=== PATIENT | female | born 1980 | race Caucasian/White ===

== ENCOUNTER → 2018-10-18 | Day surgery (SDC) | payer BC ==
[~2018-10-18] VITALS: Ht 170.2 cm; Wt 70.3 kg
[~2018-10-18] MED LIST: BACLOFEN 10 MG (LIORESAL) TAB PO ONE; KETOROLAC 30 MG/ML VIAL IM ONE; LORA10CA PO; NS IV 1000 ML 1,000 ML IV ONE; NS IV 1000 ML 1,000 ML ONE; OXYM30SP NS
--- OUTSIDE RECORDS SUMMARY | 2018-10-18 16:02 | XMS REPORT | CCD ---
Author Author Ying Burdick Organization Ying Burdick MD, [facility] Address [address] [place] [address] Phone Care Team Providers Care Air Conditioning Manager Name Role Phone PP Unavailable CCM Unavailable Summary Purpose Interface Exchange Insurance Providers Payer name Policy type / Coverage type Covered green party ID Effective Begin Date Effective End Date [facility] [id number] 2017 Unknown Family history Sister Diagnosis Age At Onset Hyperlipidemia Unknown Father Diagnosis Age At Onset Hyperlipidemia Unknown Arthritis Unknown Hypertension Unknown Diabetes Unknown Mother Diagnosis Age At Onset Hyperlipidemia Unknown Hypertension Unknown Asthma Unknown Arthritis Unknown Social History Social History Element Codes Description Effective Dates Marital status Unknown Single 05/05/2016 Number of children Unknown 0 05/05/[address]: 564704992 Never smoker 05/05/[address]: 544999718 Never drinks alcohol 05/05/2016 Allergies, Adverse Reactions, Alerts Substance Reaction Codes Entered Date Inactivated Date Status NEOMYCIN RxNorm: 7299 05/05/2016 No Inactive Date Active Penicillin Unknown 05/05/2016 No Inactive Date Active Past Medical History Illness Codes Condition Status Onset Date Resolved Date Acute laryngopharyngitis ICD-9: 465.0 ICD-10: J06.0 Active 10/09/2018 Unknown Other allergic rhinitis ICD-9: 477.8 ICD-10: J30.89 Active 10/09/2018 Unknown Cervicalgia ICD-9: 723.1 ICD-10: M54.2 Active 06/22/2016 Unknown Muscle spasm of back ICD-9: 724.8 ICD-10: M62.830 Active 07/24/2018 Unknown Pain in left shoulder ICD-9: 719.41 ICD-10: M25.512 Active 06/22/2016 Unknown Elevated blood-pressure reading, without diagnosis of hypertension ICD-9: 796.2 ICD-10: R03.0 Active 05/20/2018 Unknown Pain in right shoulder ICD-9: 719.41 ICD-10: M25.511 Active 07/12/2017 Unknown Strain of other muscles, fascia and tendons at shoulder and upper arm level, left arm, initial encounter ICD-9: 840.8 ICD-10: S46.812A Active 06/22/2016 Unknown Cutaneous abscess of right upper limb ICD-9: 682.3 ICD-10: L02.413 Active 05/04/2016 Unknown Pain in left ankle and joints of left foot ICD-9: 719.47 ICD-10: M25.572 Active 05/04/2016 Unknown Problems Condition Codes Effective Dates Condition Status Acute laryngopharyngitis ICD-9: 465.0 ICD-10: J06.0 10/09/2018 Active Other allergic rhinitis ICD-9: 477.8 ICD-10: J30.89 10/09/2018 Active Cervicalgia ICD-9: 723.1 ICD-10: M54.2 06/22/2016 Active Muscle spasm of back ICD-9: 724.8 ICD-10: M62.830 07/24/2018 Active Pain in left shoulder ICD-9: 719.41 ICD-10: M25.512 06/22/2016 Active Elevated blood-pressure reading, without diagnosis of hypertension ICD-9: 796.2 ICD-10: R03.0 05/20/2018 Active Pain in right shoulder ICD-9: 719.41 ICD-10: M25.511 07/12/2017 Active Strain of other muscles, fascia and tendons at shoulder and upper arm level, left arm, initial encounter ICD-9: 840.8 ICD-10: S46.812A 06/22/2016 Active Cutaneous abscess of right upper limb ICD-9: 682.3 ICD-10: L02.413 05/04/2016 Active Pain in left ankle and joints of left foot ICD-9: 719.47 ICD-10: M25.572 05/04/2016 Active Medications Medication Codes Instructions Start Date Stop Date Status Fill Instructions ProAir HFA 90 mcg/actuation aerosol inhaler RxNorm: 615443 2 Puff(s) INH QID as needed 2 INH QID 10/15/2018 01/12/2019 Active prednisone 20 mg tablet RxNorm: 502640 1 Tablet(s) PO UD 201710/19/2018 Active 40,40,20,20,10,10 albuterol sulfate 2.5 mg/3 mL (0.083 %) solution for nebulization RxNorm: 058493 3 Milliliter(s) INH QID as needed 10/15/2018 No Stop Date Active ofloxacin 0.3 % eye drops RxNorm: 912412 2 Drop(s) ophthalmic (eye) Q2H while awake x 2 days, then Q4H x 5 days 10/14/2018 No Stop Date Active Zithromax Z-Rufus 250 mg tablet RxNorm: 352568 1 Tablet(s) PO UD 10/09/2018 No Stop Date Active Kenalog 40 mg/mL suspension for injection RxNorm: 8850176 Milliliter(s) Inj 10/09/2018 10/09/2018 Inactive prednisone 20 mg tablet RxNorm: 109895 2 Tablet(s) PO daily 10/13/2018 Inactive prednisone 20 mg tablet RxNorm: 078458 2 Tablet(s) PO daily 10/201807/28/2018 Inactive cyclobenzaprine 5 mg tablet RxNorm: 931152 1-2 Tablet(s) PO TID as needed 07/24/2018 07/28/2018 Inactive propranolol 10 mg tablet RxNorm: 609786 1/2 Tablet(s) PO daily as needed performance anxiety events 05/20/201803/2018 Inactive Symbicort 160 mcg-4.5 mcg/actuation HFA aerosol inhaler RxNorm: 0547641 1 INH BID 10/26/2017 01/23/2018 Inactive ProAir HFA 90 mcg/actuation aerosol inhaler RxNorm: 287839 2 INH QID 10/26/2017 01/23/2018 Inactive Symbicort 160 mcg-4.5 mcg/actuation HFA aerosol inhaler RxNorm: 9305515 1 INH BID 10/11/2016 01/08/2017 Inactive ProAir HFA 90 mcg/actuation aerosol inhaler RxNorm: 000335 2 INH QID 10/11/2016 01/08/2017 Inactive Ventolin Refill 90 mcg/actuation aerosol inhaler RxNorm: 569799 2 INH QID 10/11/2016 10/10/2016 Inactive ketorolac 30 mg/mL injection solution RxNorm: 299092 2 Milliliter(s) Inj 06/23/2016 06/23/2016 Inactive cyclobenzaprine 10 mg tablet RxNorm: 543948 1 Tablet(s) PO TID PRN 06/23/2016 07/11/2017 Inactive Bactrim DS 800 mg-160 mg tablet RxNorm: 405807 1 Tablet(s) PO BID 05/05/2016 05/14/2016 Inactive metformin ER 1,000 mg tablet,extended release 24hr RxNorm: 635617 1 Tablet(s) PO BID No Start Date Active Ventolin 90 mcg/actuation aerosol inhaler RxNorm: 351152 INH as needed No Start Date Active Vitamin D3 2,000 unit capsule RxNorm: 055238 1 Capsule(s) PO daily No Start Date Active Claritin 10 mg tablet RxNorm: 626625 1 Tablet(s) PO daily No Start Date Active albuterol sulfate 2.5 mg/3 mL (0.083 %) solution for nebulization RxNorm: 654643 3 Milliliter(s) INH QID as needed No Start Date 10/14/2018 Inactive ofloxacin 0.3 % eye drops RxNorm: 539040 2 Drop(s) ophthalmic (eye) Q2H while awake x 2 days, then Q4H x 5 days No Start Date 10/13/2018 Inactive Symbicort 160 mcg-4.5 mcg/actuation HFA aerosol inhaler RxNorm: 6368158 1 INH BID No Start Date 10/10/2016 Inactive Medication Administered Medication Codes Instructions Start Date Status Kenalog 40 mg/mL suspension for injection RxNorm: 1318123 Milliliter 10/09/2018 No longer Active ketorolac 30 mg/mL injection solution RxNorm: 652285 2Milliliter 06/23/2016 No longer Active Immunizations No Immunization data Assessments Condition Codes Effective Dates Acute laryngopharyngitis ICD-10: J06.0 ICD-9: 465.0 10/09/2018 Other allergic rhinitis ICD-10: J30.89 ICD-9: 477.8 10/09/2018 Muscle spasm of back ICD-10: M62.830 ICD-9: 724.8 07/24/2018 Cervicalgia ICD-10: M54.2 ICD-9: 723.1 07/24/2018 Pain in left shoulder ICD-10: M25.512 ICD-9: 719.41 07/24/2018 Elevated blood-pressure reading, without diagnosis of hypertension ICD-10: R03.0 ICD-9: 796.2 05/20/2018 Pain in right shoulder ICD-10: M25.511 ICD-9: 719.41 07/12/2017 Strain of other muscles, fascia and tendons at shoulder and upper arm level, left arm, initial encounter ICD-10: S46.812A ICD-9: 840.8 06/23/2016 Cutaneous abscess of right upper limb ICD-10: L02.413 ICD-9: 682.3 05/05/2016 Pain in left ankle and joints of left foot ICD-10: M25.572 ICD-9: 719.47 05/05/2016 Reason For Visit Reason For Visit Effective Dates Notes sore throat 10/09/2018 back pain 07/24/2018 blood pressure followup 05/20/2018 shoulder pain 07/12/2017 neck pain 06/23/2016 lower leg pain 05/05/2016 Results No Results data Review of Systems System Result Effective Dates Constitutional recent illness 10/09/2018 Constitutional chills 10/09/2018 Constitutional No diaphoresis 10/09/2018 Constitutional fever 10/09/2018 Eyes No eye erythema 10/09/2018 Ears/Nose/Throat/Neck nasal allergies Ears/Nose/Throat/Neck nasal discharge Ears/Nose/Throat/Neck postnasal drip Ears/Nose/Throat/Neck sinus congestion Ears/Nose/Throat/Neck sore throat 2017 Cardiovascular No chest pain/pressure Cardiovascular No dyspnea 10/09/2018 Respiratory No chest congestion 2017 Respiratory cough 10/09/2018 Respiratory No dyspnea 10/09/2018 Gastrointestinal No constipation 2017 Gastrointestinal No diarrhea 10/09/2018 Gastrointestinal No nausea 10/09/2018 Gastrointestinal No vomiting 10/09/2018 Dermatologic No rash 10/09/2018 Neurologic No alteration of consciousness 10/09/2018 Neurologic No mental status change 2017 Constitutional No recent illness 2017 Constitutional No chills 07/24/2018 Constitutional No fever 07/24/2018 Eyes No eye erythema 07/24/2018 Ears/Nose/Throat/Neck No nasal discharge 07/24/2018 Cardiovascular No chest pain/pressure 10/2018 Cardiovascular No dyspnea 07/24/2018 Respiratory No cough 07/24/2018 Respiratory No dyspnea 07/24/2018 Musculoskeletal joint complaint 2017 Neurologic No alteration of consciousness 07/24/2018 Neurologic No mental status change 2017 Constitutional No recent illness 2017 Constitutional No anorexia 05/20/2018 Constitutional No night sweats 2017 Constitutional No chills 05/20/2018 Constitutional No diaphoresis 05/20/2018 Constitutional No fatigue 05/20/2018 Constitutional No fever 05/20/2018 Constitutional No insomnia 05/20/2018 Constitutional No malaise 05/20/2018 Ears/Nose/Throat/Neck No dysphagia 2017 Cardiovascular No chest pain/pressure 07/2018 Respiratory No dyspnea 05/20/2018 Dermatologic No rash 05/20/2018 Dermatologic No sores 05/20/2018 Neurologic No alteration of consciousness 05/20/2018 Cardiovascular hypertension 05/20/2018 Gastrointestinal No hemorrhoids 2017 Gastrointestinal No abdominal pain 2017 Gastrointestinal No constipation 2017 Gastrointestinal No diarrhea 05/20/2018 Gastrointestinal No gastroesophageal reflux 05/20/2018 Gastrointestinal No melena 05/20/2018 Gastrointestinal No nausea 05/20/2018 Gastrointestinal No vomiting 05/20/2018 Psychiatric No anxiety 05/20/2018 Psychiatric No depression 05/20/2018 Constitutional No recent illness 2016 Constitutional No anorexia 07/12/2017 Constitutional No night sweats 2016 Constitutional No chills 07/12/2017 Constitutional No diaphoresis 07/12/2017 Constitutional fatigue 07/12/2017 Constitutional No fever 07/12/2017 Constitutional insomnia 07/12/2017 Constitutional No malaise 07/12/2017 Constitutional No weight loss 07/12/2017 Constitutional No weight gain 07/12/2017 Ears/Nose/Throat/Neck No dysphagia 2016 Cardiovascular No chest pain/pressure Respiratory No dyspnea 07/12/2017 Dermatologic No rash 07/12/2017 Dermatologic No sores 07/12/2017 Neurologic No alteration of consciousness 07/12/2017 Musculoskeletal shoulder pain 07/12/2017 Eyes No eye discharge 07/12/2017 Eyes No eye erythema 07/12/2017 Ears/Nose/Throat/Neck dizziness 2016 Ears/Nose/Throat/Neck No nasal discharge 07/12/2017 Ears/Nose/Throat/Neck nasal allergies Gastrointestinal No abdominal pain 2016 Gastrointestinal No constipation 2016 Gastrointestinal No diarrhea 07/12/2017 Genitourinary/Nephrology No dysuria 07/12 Psychiatric anxiety 07/12/2017 Endocrine No dry or coarse skin 2016 Constitutional No recent illness 2015 Constitutional No anorexia 06/23/2016 Constitutional No night sweats 2015 Constitutional No chills 06/23/2016 Constitutional No diaphoresis 06/23/2016 Constitutional No fatigue 06/23/2016 Constitutional No fever 06/23/2016 Constitutional No insomnia 06/23/2016 Constitutional No malaise 06/23/2016 Constitutional No weight loss 06/23/2016 Constitutional No weight gain 06/23/2016 Musculoskeletal stiffness 06/23/2016 Musculoskeletal swelling 06/23/2016 Musculoskeletal joint complaint 2015 Musculoskeletal neck pain 06/23/2016 Musculoskeletal shoulder pain 06/23/2016 Dermatologic No rash 06/23/2016 Dermatologic No sores 06/23/2016 Neurologic No alteration of consciousness 06/23/2016 Respiratory No dyspnea 06/23/2016 Cardiovascular No chest pain/pressure 10/2016 Ears/Nose/Throat/Neck No dysphagia 2015 Constitutional No recent illness 2015 Constitutional No chills 05/05/2016 Constitutional No diaphoresis 05/05/2016 Constitutional No fatigue 05/05/2016 Constitutional No fever 05/05/2016 Constitutional No insomnia 05/05/2016 Eyes No eye erythema 05/05/2016 Ears/Nose/Throat/Neck No nasal allergies 05/05/2016 Ears/Nose/Throat/Neck No nasal discharge 05/05/2016 Ears/Nose/Throat/Neck No otalgia 2015 Ears/Nose/Throat/Neck No sinus congestion 05/05/2016 Cardiovascular No chest pain/pressure Cardiovascular No dyspnea 05/05/2016 Respiratory No cough 05/05/2016 Respiratory No chest congestion 2015 Respiratory asthma 05/05/2016 Gastrointestinal No abdominal pain 2015 Gastrointestinal No constipation 2015 Gastrointestinal No diarrhea 05/05/2016 Gastrointestinal No gastroesophageal reflux 05/05/2016 Gastrointestinal No vomiting 05/05/2016 Gastrointestinal No nausea 05/05/2016 Genitourinary/Nephrology No dysuria 05/05 Musculoskeletal joint complaint 2015 Dermatologic No rash 05/05/2016 Dermatologic sores 05/05/2016 Neurologic No alteration of consciousness 05/05/2016 Neurologic No mental status change 2015 Psychiatric No anxiety 05/05/2016 Psychiatric No depression 05/05/2016 Physical Exam Exam Name System Name Item Name Status Result Effective Dates Notes Full Exam - ENT Constitutional general appearance Overall: well nourished 10/09/2018 None Full Exam - ENT Constitutional general appearance Overall: well developed 10/09/2018 None Full Exam - ENT Constitutional general appearance Overall: in no acute distress 10/09/2018 None Full Exam - ENT Ears/Nose/Throat otoscopic exam Overall: external auditory canals normal 10/09/2018 None Full Exam - ENT Ears/Nose/Throat otoscopic exam Left tympanic membrane: air -fluid level 10/09/2018 None Full Exam - ENT Ears/Nose/Throat otoscopic exam Right tympanic membrane: air-fluid level 10/09/2018 None Full Exam - ENT Ears/Nose/Throat lips/ teeth/gingiva Overall: benign lips 10/09/2018 None Full Exam - ENT Ears/Nose/Throat oropharynx Overall: oral mucosa clear 10/09/2018 None Full Exam - ENT Ears/Nose/Throat oropharynx Posterior Pharynx: clear post nasal drainage 10/09/2018 None Full Exam - ENT Ears/Nose/Throat oropharynx Posterior Pharynx: erythema 10/09/2018 None Full Exam - ENT Respiratory inspection Overall: no retractions 10/09/2018 None Full Exam - ENT Respiratory inspection Overall: normal rate None Full Exam - ENT Respiratory auscultation Overall: breath sounds clear bilaterally 10/09/2018 None Full Exam - ENT Cardiovascular auscultation of heart Rate: normal rate 10/09/2018 None Full Exam - ENT Cardiovascular auscultation of heart Rhythm: regular rhythm 10/09/2018 None Full Exam - ENT Lymphatic palpation of lymph nodes Overall: anterior cervical chain benign 10/09/2018 None Full Exam - ENT Lymphatic palpation of lymph nodes Overall: posterior cervical chain benign 10/09/2018 None Full Exam - ENT Neurologic mood and affect Overall: normal mood 10/09/2018 None Full Exam - ENT Neurologic mood and affect Overall: normal affect 10/09/2018 None Full Exam - ENT Neurologic orientation Overall: oriented to person, place and time 10/09/2018 None Full Exam - ENT Ears/Nose/Throat oropharynx Right tonsil: enlarged 10/09/2018 None Full Exam - ENT Ears/Nose/Throat oropharynx Right tonsil: erythematous 10/09/2018 None Full Exam - ENT Ears/Nose/Throat oropharynx Right tonsil: mass 10/09/2018 cyst Full Exam - ENT Ears/Nose/Throat oropharynx Left tonsil: enlarged 10/09/2018 None Full Exam - ENT Ears/Nose/Throat oropharynx Left tonsil: erythematous 10/09/2018 None Full Exam - Orthopedics Constitutional general appearance Overall: well nourished 07/24/2018 None Full Exam - Orthopedics Constitutional general appearance Overall: well developed 07/24/2018 None Full Exam - Orthopedics Constitutional general appearance Overall: in no acute distress 07/24/2018 None Full Exam - Orthopedics Eyes conjunctiva/ eyelids Overall: conjunctiva clear 07/24/2018 None Full Exam - Orthopedics Eyes conjunctiva/ eyelids Overall: eyelids normal 07/24/2018 None Full Exam - Orthopedics Ears/Nose/Throat lips/teeth/gingiva Overall: benign lips 07/24/2018 None Full Exam - Orthopedics Ears/Nose/Throat oral cavity/pharynx/larynx Overall: oral mucosa clear 07/24/2018 None Full Exam - Orthopedics Respiratory respiratory effort/rhythm Overall: no retractions 07/24/2018 None Full Exam - Orthopedics Respiratory respiratory effort/rhythm Overall: normal rate 07/24/2018 None Full Exam - Orthopedics Psychiatric orientation/consciousness Overall: oriented to person, place and time 07/24/2018 None Full Exam - Orthopedics Psychiatric mood and affect Overall: normal mood and affect 07/24/2018 None Full Exam - Orthopedics Psychiatric appearance Overall: well-groomed, good eye contact 07/24/2018 None Full Exam - Orthopedics MS: head/neck insp & palp - H/N Overall: head atraumatic 07/24/2018 None Full Exam - Orthopedics MS: head/neck range of motion - H/N Flexion: painful cervical muscles with flexion 07/24/2018 None Full Exam - Orthopedics MS: head/neck range of motion - H/N Extension: painful cervical muscles with extension 07/24/2018 None Full Exam - Orthopedics MS: head/neck range of motion - H/N Left lateral bending: painful cervical muscles with left lateral bending 2017 None Full Exam - Orthopedics MS: head/neck range of motion - H/N Right lateral bending: painful cervical muscles with right lateral bending 07/24 None Full Exam - Orthopedics MS: head/neck range of motion - H/N Left lateral rotation: painful cervical muscles with left lateral rotation 07/24 None Full Exam - Orthopedics MS: head/neck range of motion - H/N Right lateral rotation: painful cervical muscles with right lateral rotation 10/2018 None Full Exam - Orthopedics MS: spine/rib/pelvis insp & palp - S/R/P Thoracic/lumbar muscles palpation: tender left parathoracic 07/24/2018 None Full Exam - General 1994 Constitutional general appearance Overall: well developed 05/20/2018 None Full Exam - General 1994 Constitutional general appearance Overall: in no acute distress 05/20/2018 None Full Exam - General 1994 Constitutional general appearance Overall: well nourished 05/20/2018 None Full Exam - General 1994 Musculoskeletal head and neck Cervical Spine: full flexion 05/20/2018 swelling and tenderness left trapezius muscle Full Exam - General 1994 Musculoskeletal head and neck Cervical Spine: full extension 05/20/2018 None Full Exam - General 1994 Integument inspection of skin Overall: few scattered moles, no gross abnormalities 05/20/2018 None Full Exam - General 1994 Neurologic cranial nerves Overall: crainial nerves 2 - 12 grossly intact 05/20/2018 None Full Exam - General 1994 Psychiatric orientation/consciousness Overall: oriented to person, place and time 05/20/2018 None Full Exam - General 1994 Respiratory auscultation Overall: breath sounds clear bilaterally 05/20/2018 None Full Exam - General 1994 Respiratory respiratory effort/rhythm Overall: normal rate 05/20/2018 None Full Exam - General 1994 Respiratory respiratory effort/rhythm Overall: no retractions 05/20/2018 None Full Exam - General 1994 Cardiovascular extremities Overall: no clubbing 05/20/2018 None Full Exam - General 1994 Cardiovascular auscultation of heart Overall: regular rate 05/20/2018 None Full Exam - General 1994 Cardiovascular auscultation of heart Overall: normal heart sounds 05/20/2018 None Full Exam - General 1994 Cardiovascular auscultation of heart Overall: no murmurs 05/20/2018 None Full Exam - General 1994 Constitutional general appearance Overall: well developed 07/12/2017 None Full Exam - General 1994 Constitutional general appearance Overall: in no acute distress 07/12/2017 None Full Exam - General 1994 Constitutional general appearance Overall: well nourished 07/12/2017 None Full Exam - General 1994 Musculoskeletal spine, ribs and pelvis Posture: lordosis 07/12/2017 None Full Exam - General 1994 Musculoskeletal head and neck Cervical Spine: full flexion 07/12/2017 swelling and tenderness left trapezius muscle Full Exam - General 1994 Musculoskeletal head and neck Cervical Spine: full extension 07/12/2017 None Full Exam - General 1994 Musculoskeletal head and neck Cervical Spine: full rotation 07/12/2017 None Full Exam - General 1994 Integument inspection of skin Overall: few scattered moles, no gross abnormalities 07/12/2017 None Full Exam - General 1994 Neurologic cranial nerves Overall: crainial nerves 2 - 12 grossly intact 07/12/2017 None Full Exam - General 1994 Psychiatric orientation/consciousness Overall: oriented to person, place and time 07/12/2017 None Full Exam - General 1994 Musculoskeletal upper extremity Inspection - shoulder: swelling 07/12/2017 None Full Exam - General 1994 Musculoskeletal upper extremity Palpation - shoulder: acromioclavicular joint effusion 07/12/2017 None Full Exam - General 1994 Musculoskeletal upper extremity Palpation - shoulder: tenderness @ bicipital groove 07/12/2017 None Full Exam - General 1994 Musculoskeletal upper extremity ROM - shoulder: pain with external rotation 07/12/2017 None Full Exam - General 1994 Musculoskeletal upper extremity ROM - shoulder: pain with internal rotation 07/12/2017 None Full Exam - General 1994 Cardiovascular auscultation of heart Overall: regular rate 07/12/2017 None Full Exam - General 1994 Cardiovascular auscultation of heart Overall: normal heart sounds 07/12/2017 None Full Exam - General 1994 Cardiovascular auscultation of heart Overall: no murmurs 07/12/2017 None Full Exam - General 1994 Respiratory respiratory effort/rhythm Overall: no retractions 07/12/2017 None Full Exam - General 1994 Respiratory respiratory effort/rhythm Overall: normal rate 07/12/2017 None Full Exam - General 1994 Respiratory auscultation Overall: breath sounds clear bilaterally 07/12/2017 None Full Exam - General 1994 Ears/Nose/Throat otoscopic exam Overall: tympanic membranes clear 07/12/2017 None Full Exam - General 1994 Ears/Nose/Throat otoscopic exam Overall: external auditory canals clear 07/12/2017 None Full Exam - General 1994 Ears/Nose/Throat oral cavity/pharynx/larynx Overall: oral mucosa clear 07/12/2017 None Full Exam - General 1994 Eyes conjunctiva /eyelids Overall: conjunctiva clear 07/12/2017 None Full Exam - General 1994 Eyes pupils and irises Overall: pupils equal, round, reactive to light and accomodation 07/12/2017 None Full Exam - General 1994 Abdomen abdominal exam Overall: no tenderness 07/12/2017 None Full Exam - General 1994 Abdomen abdominal exam Overall: normal bowel sounds 07/12/2017 None Full Exam - General 1994 Constitutional general appearance Overall: well developed 06/23/2016 None Full Exam - General 1994 Constitutional general appearance Overall: in no acute distress 06/23/2016 None Full Exam - General 1994 Constitutional general appearance Overall: well nourished 06/23/2016 None Full Exam - General 1994 Psychiatric orientation/consciousness Overall: oriented to person, place and time 06/23/2016 None Full Exam - General 1994 Neurologic cranial nerves Overall: crainial nerves 2 - 12 grossly intact 06/23/2016 None Full Exam - General 1994 Integument inspection of skin Overall: few scattered moles, no gross abnormalities 06/23/2016 None Full Exam - General 1994 Musculoskeletal spine, ribs and pelvis Posture: lordosis 06/23/2016 None Full Exam - General 1994 Musculoskeletal upper extremity Overall: normal shoulder 06/23/2016 None Full Exam - General 1994 Musculoskeletal head and neck Cervical Spine: full flexion 06/23/2016 swelling and tenderness left trapezius muscle Full Exam - General 1994 Musculoskeletal head and neck Cervical Spine: full extension 06/23/2016 None Full Exam - General 1994 Musculoskeletal head and neck Cervical Spine: full rotation 06/23/2016 None Full Exam - General 1994 Constitutional general appearance Overall: well developed 05/05/2016 None Full Exam - General 1994 Constitutional general appearance Overall: in no acute distress 05/05/2016 None Full Exam - General 1994 Constitutional general appearance Overall: well nourished 05/05/2016 None Full Exam - General 1994 Eyes conjunctiva /eyelids Overall: conjunctiva clear 05/05/2016 None Full Exam - General 1994 Eyes conjunctiva /eyelids Overall: cornea clear 05/05/2016 None Full Exam - General 1994 Eyes conjunctiva /eyelids Overall: eyelids normal 05/05/2016 None Full Exam - General 1994 Eyes pupils and irises Overall: pupils equal, round, reactive to light and accomodation 05/05/2016 None Full Exam - General 1994 Ears/Nose/Throat otoscopic exam Overall: external auditory canals clear 05/05/2016 None Full Exam - General 1994 Ears/Nose/Throat otoscopic exam Overall: tympanic membranes clear 05/05/2016 None Full Exam - General 1994 Ears/Nose/Throat lips/teeth/gingiva Overall: benign lips 05/05/2016 None Full Exam - General 1994 Ears/Nose/Throat oral cavity/pharynx/larynx Overall: oral mucosa clear 05/05/2016 None Full Exam - General 1994 Ears/Nose/Throat oral cavity/pharynx/larynx Overall: oropharyngeal mucosa clear 05/05/2016 None Full Exam - General 1994 Ears/Nose/Throat oral cavity/pharynx/larynx Overall: no masses 05/05/2016 None Full Exam - General 1994 Respiratory auscultation Overall: breath sounds clear bilaterally 05/05/2016 None Full Exam - General 1994 Respiratory respiratory effort/rhythm Overall: no retractions 05/05/2016 None Full Exam - General 1994 Respiratory respiratory effort/rhythm Overall: normal rate 05/05/2016 None Full Exam - General 1994 Cardiovascular auscultation of heart Overall: regular rate 05/05/2016 None Full Exam - General 1994 Cardiovascular auscultation of heart Overall: normal heart sounds 05/05/2016 None Full Exam - General 1994 Abdomen abdominal exam Overall: no tenderness 05/05/2016 None Full Exam - General 1994 Abdomen abdominal exam Overall: normal bowel sounds 05/05/2016 None Full Exam - General 1994 Musculoskeletal gait and station Overall: normal gait 05/05/2016 None Full Exam - General 1994 Musculoskeletal gait and station Overall: normal station 05/05/2016 None Full Exam - General 1994 Musculoskeletal spine, ribs and pelvis Overall: good posture 05/05/2016 None Full Exam - General 1994 Musculoskeletal head and neck Overall: head atraumatic 05/05/2016 None Full Exam - General 1994 Integument inspection of skin Location: right arm 05/05/2016 None Full Exam - General 1994 Integument inspection of skin Rash/Lesions: keloid 05/05/2016 None Full Exam - General 1994 Integument inspection of skin Rash/Lesions: ulceration 05/05/2016 None Full Exam - General 1994 Integument inspection of skin Pigmentation: erythematous 05/05/2016 None Full Exam - General 1994 Neurologic cranial nerves Overall: crainial nerves 2 - 12 grossly intact 05/05/2016 None Full Exam - General 1994 Psychiatric orientation/consciousness Overall: oriented to person, place and time 05/05/2016 None Full Exam - General 1994 Psychiatric mood and affect Overall: normal mood and affect 05/05/2016 None Full Exam - General 1994 Psychiatric appearance Overall: well-groomed, good eye contact 05/05/2016 None Full Exam - General 1994 Psychiatric speech Overall: normal quality, no aphasia 05/05/2016 None Full Exam - General 1994 Psychiatric speech Overall: normal quality, quantity, rate 05/05/2016 None Procedures Procedure Codes Date TRIAMCINOLONE ACET INJ NOS CPT-4: J3301 10/09/2018 KETOROLAC TROMETHAMINE INJ CPT-4: J1885 06/23/2016 Vital Signs Date Vital 10/09/2018 Blood Pressure 1: 120/64 Code : 8480-6 BMI: 25.2 Code : 47988-7 Heart Rate 1 : 105 bpm Height: 5'7" SpO2: 98% Weight: 161 lbs 07/24/2018 Blood Pressure 1: 136/82 Code : 8480-6 BMI: 25.4 Code : 12074-3 Heart Rate 1 : 86 bpm Height: 5'7" SpO2: 98% Weight: 162 lbs 05/20/2018 Blood Pressure 1: 150/102 Code: 8480-6 Blood Pressure 2: 146/96 Code: 8480-6 BMI: 25.2 Code: 42287-8 Heart Rate 1: 103 bpm Height: 5'7" SpO2: 98% Weight: 161 lbs 07/12/2017 Blood Pressure 1: 136/78 Code : 8480-6 BMI: 24.6 Code : 24643-3 Heart Rate 1 : 86 bpm Height: 5'7" SpO2: 96% Weight: 157 lbs 06/23/2016 Blood Pressure 1: 132/72 Code : 8480-6 BMI: 24.1 Code : 61936-3 Heart Rate 1 : 94 bpm Height: 5'7" SpO2: 98% Weight: 154 lbs 05/05/2016 Blood Pressure 1: 140/86 Code : 8480-6 BMI: 24.1 Code : 02884-7 Heart Rate 1 : 94 bpm Height: 5'7" SpO2: 98% Weight: 154 lbs Functional Status No Functional Status data History of Present Illness Symptom Name Status Result Effective Date Notes sore throat Location diffusely 10/09/2018 None sore throat Quality aching 10/09/2018 None sore throat Quality burning 10/09/2018 None sore throat Onset and Resolution sudden in onset 10/09/2018 None sore throat Onset of Symptom 1 weeks ago 10/09/2018 None cough Location in the throat 10/09/2018 None cough Quality constant 10/09/2018 None cough Quality hacking 10/09/2018 None cough Quality productive 10/09/2018 None cough Onset and Resolution sudden in onset 10/09/2018 None cough Onset of Symptom 1 weeks ago 10/09/2018 None cough Frequency of Episodes daily 10/09/2018 None earache Location both ears 10/09/2018 None earache Onset and Resolution sudden in onset 10/09/2018 None earache Onset of Symptom 1 weeks ago 10/09/2018 None earache Frequency of Episodes daily 10/09/2018 None back pain Location thoracic spine 07/24/2018 None back pain Location lumbar-sacral spine 07/24/2018 None back pain Quality acute 07/24/2018 None back pain Onset and Resolution sudden in onset 07/24/2018 None back pain Pertinent Findings Denies fever 07/24/2018 None back pain Pertinent Findings torticollis 07/24/2018 None back pain Pertinent Findings Denies extremity weakness 07/24/2018 None blood pressure followup Blood Pressure Values pt checking blood pressure - see scanned document 05/20 None blood pressure followup Quality acute 05/20/2018 None blood pressure followup Significant Family History hypertension 05/20/2018 None blood pressure followup Exacerbating Factors stress 05/20/2018 None blood pressure followup Pertinent Findings anxiety 05/20/2018 None blood pressure followup Quality intermittent 05/20/2018 None shoulder pain Location diffusely 07/12/2017 None shoulder pain Quality constant 07/12/2017 None shoulder pain Onset and Resolution sudden in onset 07/12/2017 None shoulder pain Onset of Symptom 3 months ago 07/12/2017 None shoulder pain Frequency of Episodes daily 07/12/2017 None shoulder pain Mechanism of injury unknown 07/12/2017 None shoulder pain Triggers activity 07/12/2017 None shoulder pain Exacerbating Factors activity 07/12/2017 None shoulder pain Pertinent Findings Denies limited range of motion 07/12/2017 None neck pain Quality constant 06/23/2016 None neck pain Quality discomfort 06/23/2016 None neck pain Quality sharp 06/23/2016 None neck pain Onset and Resolution sudden in onset 06/23/2016 None neck pain Onset of Symptom 1 days ago 06/23/2016 None neck pain Limitation on Activities moderately limits activities 06/23/2016 None neck pain Frequency of Episodes increasing 06/23/2016 None neck pain Triggers activity 06/23/2016 None neck pain Exacerbating Factors activity 06/23/2016 None neck pain Severity moderate 06/23/2016 None neck pain Sports Participation not significant 06/23/2016 None lower leg pain Location on the left 05/05/2016 None lower leg pain Quality aching pain 05/05/2016 None lower leg pain Quality dull pain 05/05/2016 None lower leg pain Quality constant 05/05/2016 None lower leg pain Onset and Resolution sudden in onset 05/05/2016 None lower leg pain Onset of Symptom 2 days ago 05/05/2016 None lower leg pain Frequency of Episodes daily 05/05/2016 None lower leg pain Mechanism of injury unknown 05/05/2016 None lower leg pain Exacerbating Factors exercise 05/05/2016 None lower leg pain Pertinent Findings limping 05/05/2016 None lower leg pain Pertinent Findings pain with movement 05/05/2016 None lower leg pain Pertinent Findings stiffness 05/05/2016 None Advance Directives No Advance Directive data Encounters Encounter Performer Location Codes Date EST. PATIENT, LEVEL III Diagnosis: Acute laryngopharyngitis[ICD10: J06.0] Diagnosis: Other allergic rhinitis[ICD10: J30.89] [facility] CPT-4: 61638 10/09/2018 [id number] EST. PATIENT, LEVEL III Diagnosis: Cervicalgia[ICD10: M54.2] Diagnosis: Pain in left shoulder[ICD10: M25.512] Diagnosis: Muscle spasm of back[ICD10: M62.830] [facility] CPT-4: 98465 07/24/2018 ([id number]) [id number] EST. PATIENT, LEVEL III Diagnosis: Elevated blood-pressure reading, without diagnosis of hypertension[ ICD10: R03.0] [facility] CPT-4: 44659 05/20/2018 ([id number]) 57155 EST. PATIENT, LEVEL III Diagnosis: Pain in right shoulder[ICD10: M25.511] [facility] CPT-4: 93843 07/12/2017 ([id number]) 60118 EST. PATIENT, LEVEL III Diagnosis: Pain in left shoulder[ICD10: M25.512] Diagnosis: Strain of other muscles, fascia and tendons at shoulder and upper arm level, left arm, initial encounter[ICD10: S46.812A] Diagnosis: Cervicalgia[ICD10: M54.2] [facility] CPT-4: 07921 06/23/2016 ([id number]) OFFICE VISIT, NEW - LEVEL 4 Diagnosis: Cutaneous abscess of right upper limb[ICD10: L02.413] Diagnosis: Pain in left ankle and joints of left foot[ICD10: M25.572] Saray Burdick MD, [facility] CPT-4: 96939 05/05/2016 Plan of Care Planned Activity Notes Codes Status Date Visit Plan: URI - Pt advised to increase fluids, vitamin C. Discussed natural and expected course of this diagnosis and need to alert me if symptoms do not follow expected course, or if any worse. RX sent to patient' s pharmacy. Allergies - chronic - recommended pt to use allergy medication as prescribed. Pt has been counseled as to the appropriate use of the medication. Pt to call if allergy symptoms are not controlled with the medication. If using nasal spray, instructions as follows: Nasal spray- use twice daily, one spray per nostril twice daily, after 30 minutes, rinse out nose with saline spray.. Use opposite hand per nostril to spray in the nasal steroid allergy spray. 10/09/2018 Appointment: Saray Summers WPtel: [address] [place], [place] [address] (15 min) Moderate 10/09/2018 Patient Education: Patient Medication Summary Completed 10/09/2018 Visit Plan: Neck, back, and shoulder pain - will send RX - pt is to use warm moist heat to the area - The pt is to use prn antiinflammatories to manage acute pain. The patient is to call the office if the pain is worsening or does not improve. 07/24/2018 Appointment: Saray Summers WPtel: [phone] [facility] (15 min) Moderate 07/24/2018 Patient Education: Patient Medication Summary Completed 07/24/2018 Visit Plan: Elevated Blood Pressure - without diagnosis of hypertension - pt has been instructed to check blood pressure as an outpatient, record blood pressure and heart rate and report to the clinic in two weeks on the findings. Pt advised to cut back on added salt in the diet. 05/20/2018 Appointment: Ying Burdick WPtel: [phone] [facility] [place] (15 min) Moderate 05/20/2018 Patient Education: Patient Medication Summary Completed 05/20/2018 Appointment: Princess Lovell WPtel: [phone] [place] (15 min) Moderate 04/19/2018 Referral: Sathish Vega Referral Completed 07/19/2017 Visit Plan: Right shoulder pain-refer to Dr Vega for evaluation 07/12/2017 Appointment: Princess Lovell WPtel: [phone] [place] (30 min) Complex 07/12/2017 Patient Education: Patient Medication Summary Completed 07/12/2017 Care Plan: Referral Order SNOMED-CT : 621688123 Pending 07/12/2017 Visit Plan: Neck pain-xray cervical donell-toradol injection today in the office Left shoulder pain-xray clavicle and shoulder Muscle rwuds-hbqpkxixh-ZQ for bxffzrts-xugd-gruf Sunday with update 06/23/2016 Appointment: Princess Lovell WPtel: [phone] [place] (15 min) Moderate 06/23/2016 Patient Education: Patient Medication Summary Completed 06/23/2016 Visit Plan: Well Adult - pt was counseled about diet, exercise, and encouraged to follow a heart healthy diet and increase activity level. The patient was instructed to RTC yearly for well adult exams and PRN for acute illnesses. The pt was also instructed to have yearly labs for check of cholesterol, thyroid, chem panel, CBC, and renal functioning. Abscess/ Cellulitis - The patient was instructed in appropriate wound care. The patient was instructed to use the antibiotic as per RX. The patient is to call for any change in symptoms, increase in size of the lesion, increase in pain. Left ankle pain - Pt is to use RICE - Rest, Ice, Compression, Elevation - The pt is to use prn antiinflammatories to manage acute pain. The patient is to call the office if the pain is worsening or does not improve. 05/05/2016 Appointment: Princess Lovell WPtel[phone] New Patient 05/05/2016 Patient Education: Patient Medication Summary Completed 05/05/2016 Referral: Sathish Vega Referral Completed Instructions Comment . Right shoulder pain-refer to Dr Vega for evaluation . Neck, back, and shoulder pain - will send RX - pt is to use warm moist heat to the area - The pt is to use prn antiinflammatories to manage acute pain. The patient is to call the office if the pain is worsening or does not improve. appointment with Dr. Foote's office on 10/21 at 1:20PM. URI - Pt advised to increase fluids, vitamin C. Discussed natural and expected course of this diagnosis and need to alert me if symptoms do not follow expected course, or if any worse. RX sent to patient's pharmacy. Allergies - chronic - recommended pt to use allergy medication as prescribed. Pt has been counseled as to the appropriate use of the medication. Pt to call if allergy symptoms are not controlled with the medication. If using nasal spray, instructions as follows: Nasal spray- use twice daily, one spray per nostril twice daily, after 30 minutes, rinse out nose with saline spray.. Use opposite hand per nostril to spray in the nasal steroid allergy spray. . Neck pain-xray cervical donell-toradol injection today in the office Left shoulder pain-xray clavicle and shoulder Muscle uycju-ouwopgtan-DU for vvlxegxe-zrue-lvts Sunday with update . Elevated Blood Pressure - without diagnosis of hypertension - pt has been instructed to check blood pressure as an outpatient, record blood pressure and heart rate and report to the clinic in two weeks on the findings. Pt advised to cut back on added salt in the diet. . Well Adult - pt was counseled about diet, exercise, and encouraged to follow a heart healthy diet and increase activity level. The patient was instructed to RTC yearly for well adult exams and PRN for acute illnesses. The pt was also instructed to have yearly labs for check of cholesterol, thyroid, chem panel, CBC, and renal functioning. Abscess/Cellulitis - The patient was instructed in appropriate wound care. The patient was instructed to use the antibiotic as per RX. The patient is to call for any change in symptoms, increase in size of the lesion, increase in pain. Left ankle pain - Pt is to use RICE - Rest, Ice, Compression, Elevation - The pt is to use prn antiinflammatories to manage acute pain. The patient is to call the office if the pain is worsening or does not improve.
--- OUTSIDE RECORDS SUMMARY | 2018-10-18 16:03 | XMS REPORT | CCD ---
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 Name Role Phone PP Unavailable CCM Unavailable Summary Purpose Interface Exchange Insurance Providers Payer name Policy type / Coverage type Covered republican ID Effective Begin Date Effective End Date [facility] [id number] 2017 Unknown Family history Sister Diagnosis Age At Onset Hyperlipidemia Unknown Father Diagnosis Age At Onset Hyperlipidemia Unknown Arthritis Unknown Hypertension Unknown Diabetes Unknown Mother Diagnosis Age At Onset Hyperlipidemia Unknown Hypertension Unknown Asthma Unknown Arthritis Unknown Social History Social History Element Codes Description Effective Dates Marital status Unknown Single 05/05/2016 Number of children Unknown 0 05/05/[address]: 643369287 Never smoker 05/05/[address]: 055913258 Never drinks alcohol 05/05/2016 Allergies, Adverse Reactions, [...] ProAir HFA 90 mcg/actuation aerosol inhaler RxNorm: 514704 2 Puff(s) INH QID as needed 2 INH QID 10/15/2018 01/12/2019 Active prednisone 20 mg tablet RxNorm: 798160 1 Tablet(s) PO UD 201710/19/2018 Active 40,40,20,20,10,10 ofloxacin 0.3 % eye drops RxNorm: 974214 2 Drop(s) ophthalmic (eye) Q2H while awake x 2 days, then Q4H x 5 days 10/14/2018 No Stop Date Active Zithromax Z-Rufus 250 mg tablet RxNorm: 557906 1 Tablet(s) PO UD 10/09/2018 No Stop Date Active Kenalog 40 mg/mL suspension for injection RxNorm: 5286636 Milliliter(s) Inj 10/09/2018 10/09/2018 Inactive prednisone 20 mg tablet RxNorm: 103147 2 Tablet(s) PO daily 10/13/2018 Inactive prednisone 20 mg tablet RxNorm: 063723 2 Tablet(s) PO daily 10/201807/28/2018 Inactive cyclobenzaprine 5 mg tablet RxNorm: 373847 1-2 Tablet(s) PO TID as needed 07/24/2018 07/28/2018 Inactive propranolol 10 mg tablet RxNorm: 170907 1/2 Tablet(s) PO daily as needed performance anxiety events 05/20/201803/2018 Inactive Symbicort 160 mcg-4.5 mcg/actuation HFA aerosol inhaler RxNorm: 1753324 1 INH BID 10/26/2017 01/23/2018 Inactive ProAir HFA 90 mcg/actuation aerosol inhaler RxNorm: 690813 2 INH QID 10/26/2017 01/23/2018 Inactive Symbicort 160 mcg-4.5 mcg/actuation HFA aerosol inhaler RxNorm: 6879693 1 INH BID 10/11/2016 01/08/2017 Inactive ProAir HFA 90 mcg/actuation aerosol inhaler RxNorm: 893108 2 INH QID 10/11/2016 01/08/2017 Inactive Ventolin Refill 90 mcg/actuation aerosol inhaler RxNorm: 031522 2 INH QID 10/11/2016 10/10/2016 Inactive ketorolac 30 mg/mL injection solution RxNorm: 505504 2 Milliliter(s) Inj 06/23/2016 06/23/2016 Inactive cyclobenzaprine 10 mg tablet RxNorm: 706974 1 Tablet(s) PO TID PRN 06/23/2016 07/11/2017 Inactive Bactrim DS 800 mg-160 mg tablet RxNorm: 865093 1 Tablet(s) PO BID 05/05/2016 05/14/2016 Inactive metformin ER 1,000 mg tablet,extended release 24hr RxNorm: 286344 1 Tablet(s) PO BID No Start Date Active Ventolin 90 mcg/actuation aerosol inhaler RxNorm: 554703 INH as needed No Start Date Active Vitamin D3 2,000 unit capsule RxNorm: 117960 1 Capsule(s) PO daily No Start Date Active Claritin 10 mg tablet RxNorm: 039273 1 Tablet(s) PO daily No Start Date Active ofloxacin 0.3 % eye drops RxNorm: 098956 2 Drop(s) ophthalmic (eye) Q2H while awake x 2 days, then Q4H x 5 days No Start Date 10/13/2018 Inactive Symbicort 160 mcg-4.5 mcg/actuation HFA aerosol inhaler RxNorm: 2381152 1 INH BID No Start Date 10/10/2016 Inactive Medication Administered Medication Codes Instructions Start Date Status Kenalog 40 mg/mL suspension for injection RxNorm: 2706603 Milliliter 10/09/2018 No longer Active ketorolac 30 mg/mL injection solution RxNorm: 370886 2Milliliter 06/23/2016 No longer Active Immunizations No [...] Code : 8480-6 BMI: 25.2 Code : 96234-8 Heart Rate 1 : 105 bpm Height: 5'7" SpO2: 98% Weight: 161 lbs 07/24/2018 Blood Pressure 1: 136/82 Code : 8480-6 BMI: 25.4 Code : 26576-0 Heart Rate 1 : 86 bpm Height: 5'7" SpO2: 98% Weight: 162 lbs 05/20/2018 Blood Pressure 1: 150/102 Code: 8480-6 Blood Pressure 2: 146/96 Code: 8480-6 BMI: 25.2 Code: 57815-4 Heart Rate 1: 103 bpm Height: 5'7" SpO2: 98% Weight: 161 lbs 07/12/2017 Blood Pressure 1: 136/78 Code : 8480-6 BMI: 24.6 Code : 79724-5 Heart Rate 1 : 86 bpm Height: 5'7" SpO2: 96% Weight: 157 lbs 06/23/2016 Blood Pressure 1: 132/72 Code : 8480-6 BMI: 24.1 Code : 50408-5 Heart Rate 1 : 94 bpm Height: 5'7" SpO2: 98% Weight: 154 lbs 05/05/2016 Blood Pressure 1: 140/86 Code : 8480-6 BMI: 24.1 Code : 27862-0 Heart Rate 1 : 94 bpm Height: [...] Other allergic rhinitis[ICD10: J30.89] Saray Burdick MD, [facility] CPT-4: 60312 10/09/2018 [id number] EST. PATIENT, LEVEL III Diagnosis: Cervicalgia[ICD10: M54.2] Diagnosis: Pain in left shoulder[ICD10: M25.512] Diagnosis: Muscle spasm of back[ICD10: M62.830] Saray Burdick MD, [facility] CPT-4: 26580 07/24/2018 ([id number]) 02223 EST. PATIENT, LEVEL III Diagnosis: Elevated blood-pressure reading, without diagnosis of hypertension[ ICD10: R03.0] Ying uBrdick MD, [facility] CPT-4: 55231 05/20/2018 ([id number]) 46062 EST. PATIENT, LEVEL III Diagnosis: Pain in right shoulder[ICD10: M25.511] Princess Burdick MD, [facility] CPT-4: 28722 07/12/2017 ([id number]) 14062 EST. PATIENT, LEVEL III Diagnosis: Pain in left shoulder[ICD10: M25.512] Diagnosis: Strain of other muscles, fascia and tendons at shoulder and upper arm level, left arm, initial encounter[ICD10: S46.812A] Diagnosis: Cervicalgia[ICD10: M54.2] [facility] CPT-4: 00027 06/23/2016 ([id number]) OFFICE VISIT, NEW - LEVEL 4 Diagnosis: Cutaneous abscess of right upper limb[ICD10: L02.413] Diagnosis: Pain in left ankle and joints of left foot[ICD10: M25.572] [facility] CPT-4: 17534 05/05/2016 Plan of Care Planned Activity Notes [...] allergy spray. 10/09/2018 Appointment: Saray Summers WPtel: [address] [place], [place] [address] (15 min) Moderate 10/09/2018 Patient Education: Patient [...] not improve. 07/24/2018 Appointment: Saray Summers [facility] [place] (15 min) Moderate 07/24/2018 Patient Education: Patient [...] the diet. 05/20/2018 Appointment: Ying Burdick WPtel: [address] [facility] (15 min) Moderate 05/20/2018 Patient Education: Patient Medication Summary Completed 05/20/2018 Appointment: Princess Lovell WPtel: [address] [phone] [place] (15 min) Moderate 04/19/2018 Referral: Sathish Vega Referral Completed 07/19/2017 Visit Plan: Right shoulder pain-refer to Dr Vega for evaluation 07/12/2017 Appointment: Princess Lovell WPtel: [phone] [phone] [place] (30 min) Complex 07/12/2017 Patient Education: Patient Medication Summary Completed 07/12/2017 Care Plan: Referral Order SNOMED-CT : 755650950 Pending 07/12/2017 Visit Plan: Neck pain-xray cervical donell-toradol injection today in the office Left shoulder pain-xray clavicle and shoulder Muscle lxajz-iqbsdfszt-VY for kkyodcvw-ynfb-jnjz Sunday with update 06/23/2016 Appointment: Princess Lovell WPtel: [phone] [place] (15 min) Moderate 06/23/2016 Patient Education: [...] worsening or does not improve. 05/05/2016 Appointment: Nas Princess [facility]Ptel[facility] [place] New Patient 05/05/2016 Patient Education: Patient Medication [...] Left shoulder pain-xray clavicle and shoulder Muscle crwka-wsuxsyutv-DD for dieeunpe-smuy-fnwu Sunday with update . Elevated Blood Pressure [...]
--- OUTSIDE RECORDS SUMMARY | 2018-10-18 16:04 | XMS REPORT | CCD ---
Author Author Ying Burdick Organization Ying Burdick MD, [facility] Address [address] [place] [address] Phone Care Team Providers Care Foreign Policy Officer Name Role Phone PP Unavailable CCM Unavailable Summary Purpose Interface Exchange Insurance Providers Payer name Policy type / Coverage type Covered constitution party ID Effective Begin Date Effective End Date [facility] [id number] 2017 Unknown Family history Sister Diagnosis Age At Onset Hyperlipidemia Unknown Father Diagnosis Age At Onset Hyperlipidemia Unknown Arthritis Unknown Hypertension Unknown Diabetes Unknown Mother Diagnosis Age At Onset Hyperlipidemia Unknown Hypertension Unknown Asthma Unknown Arthritis Unknown Social History Social History Element Codes Description Effective Dates Marital status Unknown Single 05/05/2016 Number of children Unknown 0 05/05/[address]: 441739285 Never smoker 05/05/[address]: 054870592 Never drinks alcohol 05/05/2016 Allergies, Adverse Reactions, [...] Start Date Stop Date Status Fill Instructions ofloxacin 0.3 % eye drops RxNorm: 564910 2 Drop(s) ophthalmic (eye) Q2H while awake x 2 days, then Q4H x 5 days 10/14/2018 No Stop Date Active Zithromax Z-Rufus 250 mg tablet RxNorm: 877419 1 Tablet(s) PO UD 10/09/2018 No Stop Date Active Kenalog 40 mg/mL suspension for injection RxNorm: 7890136 Milliliter(s) Inj 10/09/2018 10/09/2018 Inactive prednisone 20 mg tablet RxNorm: 169411 2 Tablet(s) PO daily 10/13/2018 Inactive prednisone 20 mg tablet RxNorm: 657648 2 Tablet(s) PO daily 10/201807/28/2018 Inactive cyclobenzaprine 5 mg tablet RxNorm: 825549 1-2 Tablet(s) PO TID as needed 07/24/2018 07/28/2018 Inactive propranolol 10 mg tablet RxNorm: 144019 1/2 Tablet(s) PO daily as needed performance anxiety events 05/20/201803/2018 Inactive Symbicort 160 mcg-4.5 mcg/actuation HFA aerosol inhaler RxNorm: 3719105 1 INH BID 10/26/2017 01/23/2018 Inactive ProAir HFA 90 mcg/actuation aerosol inhaler RxNorm: 296344 2 INH QID 10/26/2017 01/23/2018 Inactive Symbicort 160 mcg-4.5 mcg/actuation HFA aerosol inhaler RxNorm: 5427957 1 INH BID 10/11/2016 01/08/2017 Inactive ProAir HFA 90 mcg/actuation aerosol inhaler RxNorm: 680894 2 INH QID 10/11/2016 01/08/2017 Inactive Ventolin Refill 90 mcg/actuation aerosol inhaler RxNorm: 147738 2 INH QID 10/11/2016 10/10/2016 Inactive ketorolac 30 mg/mL injection solution RxNorm: 457056 2 Milliliter(s) Inj 06/23/2016 06/23/2016 Inactive cyclobenzaprine 10 mg tablet RxNorm: 838084 1 Tablet(s) PO TID PRN 06/23/2016 07/11/2017 Inactive Bactrim DS 800 mg-160 mg tablet RxNorm: 698384 1 Tablet(s) PO BID 05/05/2016 05/14/2016 Inactive metformin ER 1,000 mg tablet,extended release 24hr RxNorm: 415919 1 Tablet(s) PO BID No Start Date Active Ventolin 90 mcg/actuation aerosol inhaler RxNorm: 427476 INH as needed No Start Date Active Vitamin D3 2,000 unit capsule RxNorm: 599926 1 Capsule(s) PO daily No Start Date Active Claritin 10 mg tablet RxNorm: 413730 1 Tablet(s) PO daily No Start Date Active ofloxacin 0.3 % eye drops RxNorm: 734518 2 Drop(s) ophthalmic (eye) Q2H while awake x 2 days, then Q4H x 5 days No Start Date 10/13/2018 Inactive Symbicort 160 mcg-4.5 mcg/actuation HFA aerosol inhaler RxNorm: 6884633 1 INH BID No Start Date 10/10/2016 Inactive Medication Administered Medication Codes Instructions Start Date Status Kenalog 40 mg/mL suspension for injection RxNorm: 4257430 Milliliter 10/09/2018 No longer Active ketorolac 30 mg/mL injection solution RxNorm: 351502 2Milliliter 06/23/2016 No longer Active Immunizations No [...] aphasia 05/05/2016 None Full Exam - General 1995 Psychiatric speech Overall: normal quality, quantity, rate 05/05/2016 None Procedures Procedure Codes Date TRIAMCINOLONE ACET INJ NOS CPT-4: J3301 10/09/2018 KETOROLAC TROMETHAMINE INJ CPT-4: J1885 06/23/2016 Vital Signs Date Vital 10/09/2018 Blood Pressure 1: 120/64 Code : 8480-6 BMI: 25.2 Code : 09318-3 Heart Rate 1 : 105 bpm Height: 5'7" SpO2: 98% Weight: 161 lbs 07/24/2018 Blood Pressure 1: 136/82 Code : 8480-6 BMI: 25.4 Code : 83780-6 Heart Rate 1 : 86 bpm Height: 5'7" SpO2: 98% Weight: 162 lbs 05/20/2018 Blood Pressure 1: 150/102 Code: 8480-6 Blood Pressure 2: 146/96 Code: 8480-6 BMI: 25.2 Code: 64330-6 Heart Rate 1: 103 bpm Height: 5'7" SpO2: 98% Weight: 161 lbs 07/12/2017 Blood Pressure 1: 136/78 Code : 8480-6 BMI: 24.6 Code : 95521-8 Heart Rate 1 : 86 bpm Height: 5'7" SpO2: 96% Weight: 157 lbs 06/23/2016 Blood Pressure 1: 132/72 Code : 8480-6 BMI: 24.1 Code : 68956-5 Heart Rate 1 : 94 bpm Height: 5'7" SpO2: 98% Weight: 154 lbs 05/05/2016 Blood Pressure 1: 140/86 Code : 8480-6 BMI: 24.1 Code : 55570-0 Heart Rate 1 : 94 bpm Height: [...] Other allergic rhinitis[ICD10: J30.89] Saray Burdick MD, [facility] CPT-4: 99878 10/09/2018 73923 EST. PATIENT, LEVEL III Diagnosis: Cervicalgia[ICD10: M54.2] Diagnosis: Pain in left shoulder[ICD10: M25.512] Diagnosis: Muscle spasm of back[ICD10: M62.830] [facility] CPT-4: 64215 07/24/2018 ([id number]) 54004 EST. PATIENT, LEVEL III Diagnosis: Elevated blood-pressure reading, without diagnosis of hypertension[ ICD10: R03.0] Ying Burdick MD, [facility] CPT-4: 30061 05/20/2018 ([id number]) 46951 EST. PATIENT, LEVEL III Diagnosis: Pain in right shoulder[ICD10: M25.511] [facility] CPT-4: 95676 07/12/2017 ([id number]) 52795 EST. PATIENT, LEVEL III Diagnosis: Pain in left shoulder[ICD10: M25.512] Diagnosis: Strain of other muscles, fascia and tendons at shoulder and upper arm level, left arm, initial encounter[ICD10: S46.812A] Diagnosis: Cervicalgia[ICD10: M54.2] [facility] CPT-4: 27824 06/23/2016 ([id number]) OFFICE VISIT, NEW - LEVEL 4 Diagnosis: Cutaneous abscess of right upper limb[ICD10: L02.413] Diagnosis: Pain in left ankle and joints of left foot[ICD10: M25.572] [facility] CPT-4: 95249 05/05/2016 Plan of Care Planned Activity Notes [...] allergy spray. 10/09/2018 Appointment: Saray Summers WPtel: [facility] (15 min) Moderate 10/09/2018 Patient Education: Patient [...] not improve. 07/24/2018 Appointment: Saray Summers WPtel: [facility] (15 min) Moderate 07/24/2018 Patient Education: Patient [...] the diet. 05/20/2018 Appointment: Ying Burdick WPtel: [facility] [place] (15 min) Moderate 05/20/2018 Patient Education: Patient Medication Summary Completed 05/20/2018 Appointment: Princess Lovell WPtel: [address] [place], [place] [phone] [place] (15 min) Moderate 04/19/2018 Referral: Sathish Vega Referral Completed 07/19/2017 Visit Plan: Right shoulder pain-refer to Dr Vega for evaluation 07/12/2017 Appointment: Princess Lovell WPtel: [address] [place], [place] [phone] [place] (30 min) Complex 07/12/2017 Patient Education: Patient Medication Summary Completed 07/12/2017 Care Plan: Referral Order SNOMED-CT : 000001808 Pending 07/12/2017 Visit Plan: Neck pain-xray cervical donell-toradol injection today in the office Left shoulder pain-xray clavicle and shoulder Muscle knwte-pjybnshpe-FQ for zkkbuifx-koui-kdtb Sunday with update 06/23/2016 Appointment: Princess Lovell WPtel: [address] [place], [place] [phone] [place] (15 min) Moderate 06/23/2016 Patient Education: [...] not improve. 05/05/2016 Appointment: Princess Lovell WPtel: [phone] New Patient 05/05/2016 Patient Education: Patient Medication [...] Left shoulder pain-xray clavicle and shoulder Muscle daalc-tfljcclcw-DK for wirqelmt-knza-eotw Sunday with update . Elevated Blood Pressure [...]
--- OUTSIDE RECORDS SUMMARY | 2018-10-18 16:04 | XMS REPORT | CCD ---
Author Author Ying Burdick Organization Ying Burdick MD, [facility] Address [address] [place] [address] Phone Care Team Providers Care Medical Staff Director Name Role Phone PP Unavailable CCM Unavailable Summary Purpose Interface Exchange Insurance Providers Payer name Policy type / Coverage type Covered green party ID Effective Begin Date Effective End Date [facility] [id number] 2017 Unknown Family history Sister Diagnosis Age At Onset Hyperlipidemia Unknown Father Diagnosis Age At Onset Hyperlipidemia Unknown Arthritis Unknown Hypertension Unknown Diabetes Unknown Mother Diagnosis Age At Onset Hyperlipidemia Unknown Hypertension Unknown Asthma Unknown Arthritis Unknown Social History Social History Element Codes Description Effective Dates Marital status Unknown Single 05/05/2016 Number of children Unknown 0 05/05/[address]: 269249316 Never smoker 05/05/[address]: 716697034 Never drinks alcohol 05/05/2016 Allergies, Adverse Reactions, [...] Start Date Stop Date Status Fill Instructions Kenalog 40 mg/mL suspension for injection RxNorm: 2697261 Milliliter(s) Inj 10/09/2018 10/09/2018 Inactive prednisone 20 mg tablet RxNorm: 548434 2 Tablet(s) PO daily 10/13/2018 Active Zithromax Z-Rufus 250 mg tablet RxNorm: 181219 1 Tablet(s) PO UD 10/09/2018 No Stop Date Active prednisone 20 mg tablet RxNorm: 777378 2 Tablet(s) PO daily 10/201807/28/2018 Inactive cyclobenzaprine 5 mg tablet RxNorm: 089425 1-2 Tablet(s) PO TID as needed 07/24/2018 07/28/2018 Inactive propranolol 10 mg tablet RxNorm: 909115 1/2 Tablet(s) PO daily as needed performance anxiety events 05/20/201803/2018 Inactive Symbicort 160 mcg-4.5 mcg/actuation HFA aerosol inhaler RxNorm: 3987518 1 INH BID 10/26/2017 01/23/2018 Inactive ProAir HFA 90 mcg/actuation aerosol inhaler RxNorm: 430786 2 INH QID 10/26/2017 01/23/2018 Inactive Symbicort 160 mcg-4.5 mcg/actuation HFA aerosol inhaler RxNorm: 0965470 1 INH BID 10/11/2016 01/08/2017 Inactive ProAir HFA 90 mcg/actuation aerosol inhaler RxNorm: 420079 2 INH QID 10/11/2016 01/08/2017 Inactive Ventolin Refill 90 mcg/actuation aerosol inhaler RxNorm: 864387 2 INH QID 10/11/2016 10/10/2016 Inactive ketorolac 30 mg/mL injection solution RxNorm: 274127 2 Milliliter(s) Inj 06/23/2016 06/23/2016 Inactive cyclobenzaprine 10 mg tablet RxNorm: 696119 1 Tablet(s) PO TID PRN 06/23/2016 07/11/2017 Inactive Bactrim DS 800 mg-160 mg tablet RxNorm: 888832 1 Tablet(s) PO BID 05/05/2016 05/14/2016 Inactive metformin ER 1,000 mg tablet,extended release 24hr RxNorm: 289636 1 Tablet(s) PO BID No Start Date Active Ventolin 90 mcg/actuation aerosol inhaler RxNorm: 627007 INH as needed No Start Date Active Vitamin D3 2,000 unit capsule RxNorm: 285028 1 Capsule(s) PO daily No Start Date Active Claritin 10 mg tablet RxNorm: 206908 1 Tablet(s) PO daily No Start Date Active Symbicort 160 mcg-4.5 mcg/actuation HFA aerosol inhaler RxNorm: 1342249 1 INH BID No Start Date 10/10/2016 Inactive Medication Administered Medication Codes Instructions Start Date Status Kenalog 40 mg/mL suspension for injection RxNorm: 9818231 Milliliter 10/09/2018 Active ketorolac 30 mg/mL injection solution RxNorm: 124711 2Milliliter 06/23/2016 No longer Active Immunizations No [...] Code : 8480-6 BMI: 25.2 Code : 43557-2 Heart Rate 1 : 105 bpm Height: 5'7" SpO2: 98% Weight: 161 lbs 07/24/2018 Blood Pressure 1: 136/82 Code : 8480-6 BMI: 25.4 Code : 31223-2 Heart Rate 1 : 86 bpm Height: 5'7" SpO2: 98% Weight: 162 lbs 05/20/2018 Blood Pressure 1: 150/102 Code: 8480-6 Blood Pressure 2: 146/96 Code: 8480-6 BMI: 25.2 Code: 56998-9 Heart Rate 1: 103 bpm Height: 5'7" SpO2: 98% Weight: 161 lbs 07/12/2017 Blood Pressure 1: 136/78 Code : 8480-6 BMI: 24.6 Code : 68011-9 Heart Rate 1 : 86 bpm Height: 5'7" SpO2: 96% Weight: 157 lbs 06/23/2016 Blood Pressure 1: 132/72 Code : 8480-6 BMI: 24.1 Code : 49887-7 Heart Rate 1 : 94 bpm Height: 5'7" SpO2: 98% Weight: 154 lbs 05/05/2016 Blood Pressure 1: 140/86 Code : 8480-6 BMI: 24.1 Code : 62296-8 Heart Rate 1 : 94 bpm Height: [...] data Encounters Encounter Performer Location Codes Date 74311 EST. PATIENT, LEVEL III Diagnosis: Acute laryngopharyngitis[ICD10: J06.0] Diagnosis: Other allergic rhinitis[ICD10: J30.89] Saray Burdick MD, [facility] CPT-4: 96466 10/09/2018 24440 EST. PATIENT, LEVEL III Diagnosis: Cervicalgia[ICD10: M54.2] Diagnosis: Pain in left shoulder[ICD10: M25.512] Diagnosis: Muscle spasm of back[ICD10: M62.830] Saray Burdick MD, [facility] CPT-4: 00217 07/24/2018 ([id number]) 26771 EST. PATIENT, LEVEL III Diagnosis: Elevated blood-pressure reading, without diagnosis of hypertension[ ICD10: R03.0] Ying Burdick MD, [facility] CPT-4: 68622 05/20/2018 ([id number]) 97599 EST. PATIENT, LEVEL III Diagnosis: Pain in right shoulder[ICD10: M25.511] Princess Burdick MD, [facility] CPT-4: 25678 07/12/2017 ([id number]) 64989 EST. PATIENT, LEVEL III Diagnosis: Pain in left shoulder[ICD10: M25.512] Diagnosis: Strain of other muscles, fascia and tendons at shoulder and upper arm level, left arm, initial encounter[ICD10: S46.812A] Diagnosis: Cervicalgia[ICD10: M54.2] [facility] CPT-4: 19491 06/23/2016 ([id number]) OFFICE VISIT, NEW - LEVEL 4 Diagnosis: Cutaneous abscess of right upper limb[ICD10: L02.413] Diagnosis: Pain in left ankle and joints of left foot[ICD10: M25.572] [facility] CPT-4: 43724 05/05/2016 Plan of Care Planned Activity Notes [...] in the nasal steroid allergy spray. 10/09/2018 Patient Education: Patient Medication Summary Completed 10/09/2018 Visit Plan: Neck, back, and shoulder pain - will send RX - pt is to use warm moist heat to the area - The pt is to use prn antiinflammatories to manage acute pain. The patient is to call the office if the pain is worsening or does not improve. 07/24/2018 Appointment: Saray Summers WPtel: [facility] (15 min) Moderate 07/24/2018 Patient Education: Patient [...] the diet. 05/20/2018 Appointment: Ying Burdick WPtel: [facility] (15 min) Moderate 05/20/2018 Patient Education: Patient Medication Summary Completed 05/20/2018 Appointment: Princess Lovell WPtel: [address] [phone] [place] (15 min) Moderate 04/19/2018 Referral: Sathish Vega Referral Completed 07/19/2017 Visit Plan: Right shoulder pain-refer to Dr Vega for evaluation 07/12/2017 Appointment: Princess Lovell WPtel: [phone] [place] (30 min) Complex 07/12/2017 Patient Education: Patient Medication Summary Completed 07/12/2017 Care Plan: Referral Order SNOMED-CT : 032192328 Pending 07/12/2017 Visit Plan: Neck pain-xray cervical donell-toradol injection today in the office Left shoulder pain-xray clavicle and shoulder Muscle milve-gpeggprhs-JK for intxpilm-nxfx-pljx Sunday with update 06/23/2016 Appointment: Princess Lovell [facility]Ptel[phone] (15 min) Moderate 06/23/2016 Patient Education: Patient [...] not improve. 05/05/2016 Appointment: Princess Lovell WPtel[phone] New Patient 05/05/2016 Patient Education: Patient Medication [...] Left shoulder pain-xray clavicle and shoulder Muscle trrus-vcqdkuyon-VG for dcdzoffv-fqdr-wecx Sunday with update . Elevated Blood Pressure [...]
--- OUTSIDE RECORDS SUMMARY | 2018-10-18 16:05 | XMS REPORT | CCD ---
Author Author Ying Burdick Organization Ying Burdick MD, [facility] Address [address] [place] [address] Phone Care Team Providers Care Enrobing Machine Corder Name Role Phone PP Unavailable CCM Unavailable Summary Purpose Interface Exchange Insurance Providers Payer name Policy type / Coverage type Covered green party ID Effective Begin Date Effective End Date [facility] [id number] 2017 Unknown Family history Sister Diagnosis Age At Onset Hyperlipidemia Unknown Father Diagnosis Age At Onset Hyperlipidemia Unknown Arthritis Unknown Hypertension Unknown Diabetes Unknown Mother Diagnosis Age At Onset Hyperlipidemia Unknown Hypertension Unknown Asthma Unknown Arthritis Unknown Social History Social History Element Codes Description Effective Dates Marital status Unknown Single 05/05/2016 Number of children Unknown 0 05/05/[address]: 703823433 Never smoker 05/05/[address]: 702334902 Never drinks alcohol 05/05/2016 Allergies, Adverse Reactions, [...] Kenalog 40 mg/mL suspension for injection RxNorm: 0534553 Milliliter(s) Inj 10/09/2018 10/09/2018 Inactive prednisone 20 mg tablet RxNorm: 378705 2 Tablet(s) PO daily 10/13/2018 Active Zithromax Z-Rufus 250 mg tablet RxNorm: 008347 1 Tablet(s) PO UD 10/09/2018 No Stop Date Active prednisone 20 mg tablet RxNorm: 167973 2 Tablet(s) PO daily 10/201807/28/2018 Inactive cyclobenzaprine 5 mg tablet RxNorm: 433143 1-2 Tablet(s) PO TID as needed 07/24/2018 07/28/2018 Inactive propranolol 10 mg tablet RxNorm: 263674 1/2 Tablet(s) PO daily as needed performance anxiety events 05/20/201803/2018 Inactive Symbicort 160 mcg-4.5 mcg/actuation HFA aerosol inhaler RxNorm: 6874304 1 INH BID 10/26/2017 01/23/2018 Inactive ProAir HFA 90 mcg/actuation aerosol inhaler RxNorm: 114437 2 INH QID 10/26/2017 01/23/2018 Inactive Symbicort 160 mcg-4.5 mcg/actuation HFA aerosol inhaler RxNorm: 8641482 1 INH BID 10/11/2016 01/08/2017 Inactive ProAir HFA 90 mcg/actuation aerosol inhaler RxNorm: 841721 2 INH QID 10/11/2016 01/08/2017 Inactive Ventolin Refill 90 mcg/actuation aerosol inhaler RxNorm: 351500 2 INH QID 10/11/2016 10/10/2016 Inactive ketorolac 30 mg/mL injection solution RxNorm: 517422 2 Milliliter(s) Inj 06/23/2016 06/23/2016 Inactive cyclobenzaprine 10 mg tablet RxNorm: 232625 1 Tablet(s) PO TID PRN 06/23/2016 07/11/2017 Inactive Bactrim DS 800 mg-160 mg tablet RxNorm: 562970 1 Tablet(s) PO BID 05/05/2016 05/14/2016 Inactive metformin ER 1,000 mg tablet,extended release 24hr RxNorm: 139687 1 Tablet(s) PO BID No Start Date Active Ventolin 90 mcg/actuation aerosol inhaler RxNorm: 859384 INH as needed No Start Date Active Vitamin D3 2,000 unit capsule RxNorm: 045978 1 Capsule(s) PO daily No Start Date Active Claritin 10 mg tablet RxNorm: 544535 1 Tablet(s) PO daily No Start Date Active Symbicort 160 mcg-4.5 mcg/actuation HFA aerosol inhaler RxNorm: 4637523 1 INH BID No Start Date 10/10/2016 Inactive Medication Administered Medication Codes Instructions Start Date Status Kenalog 40 mg/mL suspension for injection RxNorm: 6214224 Milliliter 10/09/2018 Active ketorolac 30 mg/mL injection solution RxNorm: 543635 2Milliliter 06/23/2016 No longer Active Immunizations No [...] Code : 8480-6 BMI: 25.2 Code : 60975-5 Heart Rate 1 : 105 bpm Height: 5'7" SpO2: 98% Weight: 161 lbs 07/24/2018 Blood Pressure 1: 136/82 Code : 8480-6 BMI: 25.4 Code : 85818-4 Heart Rate 1 : 86 bpm Height: 5'7" SpO2: 98% Weight: 162 lbs 05/20/2018 Blood Pressure 1: 150/102 Code: 8480-6 Blood Pressure 2: 146/96 Code: 8480-6 BMI: 25.2 Code: 81864-3 Heart Rate 1: 103 bpm Height: 5'7" SpO2: 98% Weight: 161 lbs 07/12/2017 Blood Pressure 1: 136/78 Code : 8480-6 BMI: 24.6 Code : 31050-1 Heart Rate 1 : 86 bpm Height: 5'7" SpO2: 96% Weight: 157 lbs 06/23/2016 Blood Pressure 1: 132/72 Code : 8480-6 BMI: 24.1 Code : 13104-2 Heart Rate 1 : 94 bpm Height: 5'7" SpO2: 98% Weight: 154 lbs 05/05/2016 Blood Pressure 1: 140/86 Code : 8480-6 BMI: 24.1 Code : 55552-5 Heart Rate 1 : 94 bpm Height: [...] data Encounters Encounter Performer Location Codes Date 92125 EST. PATIENT, LEVEL III Diagnosis: Acute laryngopharyngitis[ICD10: J06.0] Diagnosis: Other allergic rhinitis[ICD10: J30.89] Saray Burdick MD, [facility] CPT-4: 90882 10/09/2018 [id number] EST. PATIENT, LEVEL III Diagnosis: Cervicalgia[ICD10: M54.2] Diagnosis: Pain in left shoulder[ICD10: M25.512] Diagnosis: Muscle spasm of back[ICD10: M62.830] Saray Burdick MD, [facility] CPT-4: 90279 07/24/2018 ([id number]) 12744 EST. PATIENT, LEVEL III Diagnosis: Elevated blood-pressure reading, without diagnosis of hypertension[ ICD10: R03.0] Ying Burdick MD, [facility] CPT-4: 07520 05/20/2018 ([id number]) 85097 EST. PATIENT, LEVEL III Diagnosis: Pain in right shoulder[ICD10: M25.511] Princess Burdick MD, [facility] CPT-4: 27918 07/12/2017 ([id number]) 32649 EST. PATIENT, LEVEL III Diagnosis: Pain in left shoulder[ICD10: M25.512] Diagnosis: Strain of other muscles, fascia and tendons at shoulder and upper arm level, left arm, initial encounter[ICD10: S46.812A] Diagnosis: Cervicalgia[ICD10: M54.2] [facility] CPT-4: 87035 06/23/2016 ([id number]) OFFICE VISIT, NEW - LEVEL 4 Diagnosis: Cutaneous abscess of right upper limb[ICD10: L02.413] Diagnosis: Pain in left ankle and joints of left foot[ICD10: M25.572] [facility] CPT-4: 63105 05/05/2016 Plan of Care Planned Activity Notes [...] not improve. 07/24/2018 Appointment: Saray Summers WPtel: [facility] (15 min) Moderate 07/24/2018 Patient Education: Patient [...] the diet. 05/20/2018 Appointment: Ying Burdick WPtel: [facility]5 [facility] (15 min) Moderate 05/20/2018 Patient Education: Patient Medication Summary Completed 05/20/2018 Appointment: Princess Lovell WPtel: [address] [phone] [place] (15 min) Moderate 04/19/2018 Referral: Sathish Vega Referral Completed 07/19/2017 Visit Plan: Right shoulder pain-refer to Dr Vega for evaluation 07/12/2017 Appointment: Princess Lovell WPtel: [phone] [place] (30 min) Complex 07/12/2017 Patient Education: Patient Medication Summary Completed 07/12/2017 Care Plan: Referral Order SNOMED-CT : 877913149 Pending 07/12/2017 Visit Plan: Neck pain-xray cervical donell-toradol injection today in the office Left shoulder pain-xray clavicle and shoulder Muscle zfpea-mfcogluty-IO for vdnfzqib-roiy-ksxp Sunday with update 06/23/2016 Appointment: Princess Lovell WPtel[phone] (15 min) Moderate 06/23/2016 Patient Education: Patient [...] not improve. 05/05/2016 Appointment: Princess Lovell WPtel: [phone] New Patient 05/05/2016 Patient Education: Patient Medication [...] Left shoulder pain-xray clavicle and shoulder Muscle zlzqh-tedqfixhi-UF for mtezsyka-jube-xmfq Sunday with update . Elevated Blood Pressure [...]
--- OUTSIDE RECORDS SUMMARY | 2018-10-18 16:05 | XMS REPORT | Continuity of Care Document ---
Author Author [facility] Organization [facility] Address Unknown Phone Unavailable Allergies There is no data. Medications There is no data. Problems Date Dx Coded Attending Type Code Diagnosis Diagnosed By 06/07/2015 Ot 719.41 06/07/2015 Ot 724.1 06/07/2015 Ot 786.50 06/07/2015 Ot 959.19 06/07/2015 Ot E000.8 06/07/2015 Ot E849.0 06/07/2015 Ot E928.9 06/07/2015 Ot 724.5 06/07/2015 NOAH KIRAN MD Ot 959.4 06/07/2015 QIANA ORANTES, NOAH Magaña Ot E000.8 06/07/2015 QIANA ORANTES, NOAH Magaña Ot E849.0 06/07/2015 NOAH KIRAN MD Ot E928.9 06/10/2015 Ot 719.41 06/10/2015 Ot 724.1 06/10/2015 Ot 786.50 06/10/2015 Ot 959.19 06/10/2015 Ot E000.8 06/10/2015 Ot E849.0 06/10/2015 Ot E928.9 06/10/2015 Ot 724.5 06/10/2015 NOAH KIRAN MD Ot 959.4 06/10/2015 NOAH KIRAN MD Ot E000.8 06/10/2015 NOAH KIRAN MD Ot E849.0 06/10/2015 NOAH KIRAN MD Ot E928.9 06/10/2015 DALTON ANDERSON MD Ot 723.0 06/10/2015 DALTON ANDERSON MD Ot 724.2 06/10/2015 DALTON ANDERSON MD Ot 723.0 06/10/2015 DALTON ANDERSON MD Ot 724.2 06/11/2015 DALTON ANDERSON MD Ot 723.0 06/11/2015 DALTON ANDERSON MD Ot 724.2 06/23/2015 JUSTIN ORANTES, DALTON Magaña Ot 241.0 06/29/2015 JUSTIN ORANTES, DALTON Magaña Ot 241.0 07/01/2015 JUSTIN ORANTES, DALTON Magaña Ot 723.0 07/01/2015 JUSTIN ORANTES, DALTON Magaña Ot 724.2 01/12/2016 Ot 719.41 01/12/2016 Ot 724.1 01/12/2016 Ot 786.50 01/12/2016 Ot 959.19 01/12/2016 Ot E000.8 01/12/2016 Ot E849.0 01/12/2016 Ot E928.9 01/12/2016 Ot 724.5 01/12/2016 QIANA ORANTES, NOAH Magaña Ot 959.4 01/12/2016 QIANA ORANTES, NOAH Magaña Ot E000.8 01/12/2016 QIANA ORANTES, NOAH Magaña Ot E849.0 01/12/2016 QIANA ORANTES, NOAH Magaña Ot E928.9 01/12/2016 JUSTIN ORANTES, DALTON Magaña Ot 241.0 02/02/2016 QIANA ORANTES, NOAH Magaña Ot E07.9 02/15/2016 QIANA ORANTES, NOAH Magaña Ot E07.9 08/01/2016 FELICIA TALAVERA Ot M25.512 PAIN IN LEFT SHOULDER 08/01/2016 FELICIA TALAVERA Ot M54.2 CERVICALGIA Procedures There is no data. Results There is no data. Encounters ACCT No. Visit Date/Time Discharge Status Pt. Type Provider Facility Loc./Unit Complaint [id number] 06/23/2016 10:40:00 06/23/2016 23:59:59 CLS Outpatient FLEICIA TALAVERA [facility] RAD NECK PAIN,SHOULDER PAIN L [id number] 02/01/2016 10:53:00 02/01/2016 23:59:59 CLS Outpatient NOAH KIRAN MD [facility] CARD [id number] 01/12/2016 13:47:00 01/12/2016 23:59:59 CLS Outpatient NOAH KIRAN MD [facility] RAD [id number] 06/10/2015 07:51:00 06/10/2015 23:59:59 CLS Outpatient DALTON ANDERSON MD [facility] RAD [id number] 06/07/2015 14:46:00 06/07/2015 23:59:59 CLS Outpatient DALTON ANDERSON MD [facility] RAD [id number] 10/15/2013 11:38:00 10/15/2013 23:59:59 CLS Outpatient NOAH KIRAN MD [facility] RAD [id number] 08/03/2011 09:43:00 Document Registration [id number] 08/01/2011 10:08:00 Document Registration [id number] 07/27/2010 08:30:00 Document Registration [id number] 08/16/2017 15:27:13 08/16/2017 23:59:59 CLS Outpatient [id number] 06/10/2015 07:53:18 ACT Document Registration
[2018-10-18 16:40] LABS: BASOPHILS % (AUTO) 0 % (0-10); EOSINOPHILS # (AUTO) 0.1 10^3/uL (0.0-0.3); EOSINOPHILS % (AUTO) 1 % (0-10); HEMATOCRIT 42 % (35-52); HEMOGLOBIN 13.9 G/DL (11.5-16.0); LYMPHOCYTES % (AUTO) 33 % (12-44); MEAN CORPUSCULAR HEMOGLOBIN 31 PG (25-34); MEAN CORPUSCULAR HGB CONC 33 G/DL (32-36); MEAN CORPUSCULAR VOLUME 94 FL (80-99); MEAN PLATELET VOLUME 8.9 FL (7.4-10.4); MONOCYTES # (AUTO) 0.7 X 10^3 (0.0-1.0); MONOCYTES % (AUTO) 6 % (0-12); NEUTROPHILS # (AUTO) 7.2 X 10^3 (1.8-7.8); NEUTROPHILS % (AUTO) 60 % (42-75); PLATELET COUNT 445 10^3/uL (130-400); RED BLOOD COUNT 4.48 10^6/uL (4.35-5.85); RED CELL DISTRIBUTION WIDTH 13.4 % (10.0-14.5)
[2018-10-18 17:00] VITALS: BP 93/67
[2018-10-18 17:11] LABS: CARBON DIOXIDE 25 MMOL/L (21-32); CHLORIDE 105 MMOL/L (98-107); POTASSIUM 3.8 MMOL/L (3.6-5.0); SODIUM 142 MMOL/L (135-145)
[2018-10-18 17:12] LABS: ALANINE AMINOTRANSFERASE 44 U/L (0-55); ALBUMIN 3.8 GM/DL (3.2-4.5); ALKALINE PHOSPHATASE 130 U/L (40-136); BILIRUBIN,TOTAL 0.2 MG/DL (0.1-1.0); BUN/CREATININE RATIO 12; CALCIUM 9.4 MG/DL (8.5-10.1); CREATININE SERUM 0.76 MG/DL (0.60-1.30); GFR ESTIMATED > 60; GLUCOSE 101 MG/DL (70-105); TOTAL PROTEIN 6.6 GM/DL (6.4-8.2)
[2018-10-18 17:21] LABS: CLARITY,URINE CLEAR; COLOR,URINE YELLOW; GLUCOSE, URINE (UA) NEGATIVE (NEGATIVE); KETONES,URINE NEGATIVE (NEGATIVE); LEUKOCYTE ESTERASE ,URINE 2+ (NEGATIVE); NITRITE,URINE NEGATIVE (NEGATIVE); PH,URINE 7 (5-9); PROTEIN,URINE 2+ (NEGATIVE); UROBILINOGEN,URINE 1 MG/DL (NORMAL)
[2018-10-18 17:34] LABS: BACTERIA,URINE FEW /HPF; BILIRUBIN,URINE 1+ (NEGATIVE)
[2018-10-18 17:40] VITALS: BP 93/67
[2018-10-18 17:42] VITALS: BP 93/67
== END ==
LOC: SDC 15:58
PROVIDERS: ATTEND Nurse Practitioner Family
DX: E86.0 Dehydration (principal); M54.9 Dorsalgia, unspecified; M62.838 Other muscle spasm
CPT/HCPCS: 36415; 80053; 81000; 85025; 87088; 96360; 96372

== ENCOUNTER → 2018-10-24 | Outpatient (CLI) | payer BC ==
[~2018-10-24] MED LIST changes: -BACLOFEN 10 MG (LIORESAL) TAB PO ONE; -KETOROLAC 30 MG/ML VIAL IM ONE; -NS IV 1000 ML 1,000 ML IV ONE; -NS IV 1000 ML 1,000 ML ONE
--- NOTE | 2018-10-24 09:49 | Diagnostic Imaging Report ---
CLINICAL INDICATION: Patient with cyst on right side of tonsil noticed two weeks ago. Patient is hoarse. EXAM: Axial CT scan of the neck soft tissue performed with 75 cc of Omnipaque 350 IV contrast. Coronal and sagittal reformatted images are created. COMPARISON: MRI of the cervical spine without contrast dated 06/07/2015. FINDINGS: There is a 8 mm x 12 mm x 9 mm (AP x Trans x CC) circumscribed nonenhancing low-density lesion involving the inferior right palatine tonsillar region which causes exophytic protrusion into the right side of the oropharynx causing mild narrowing of the oropharynx. This area was seen on the comparison MRI of the cervical spine dated 06/07/2015. This lesion is remeasured on the prior study at 5 mm by 8 mm in greatest AP and transverse dimensions. This is suspected to represent a mucus retention cyst. Neoplasm is unlikely. The remainder of the nasopharynx, oropharynx, hypopharynx, and laryngeal soft tissue structures are unremarkable. The bilateral salivary glands and thyroid gland is unremarkable. There is no lymphadenopathy. There is no neck fat stranding or fluid collection seen. The visualized portions of the neck vascular structures are unremarkable. Visualized upper lung shore are clear. There is abnormal straightening of the cervical spine posture. Otherwise cervical spine is unremarkable. There is a idyto-ic-efbobffp amount of mucosal thickening involving right maxillary sinus and minimal amount in the left maxillary sinus. Temporal bone structures show no significant abnormality. Note of unfused posterior arch of the C1 vertebra. Limited visualization of intracranial structures are unremarkable. IMPRESSION: 1: There is interval increased size of a exophytic cystic lesion involving the right palatine tonsillar region which causes mild encroachment upon the oropharynx. This lesion was seen on the prior MRI of the cervical spine dated 06/07/2015. This is suspected to represent a mucus retention cyst. Neoplasm is unlikely. 2: Otherwise, the remainder of the neck soft tissue structures are unremarkable. There is no lymphadenopathy. 3: There is straightening of the cervical spine posture which is nonspecific. 4: Paranasal sinus disease. Dictated by: Dictated on workstation # [id number]
== END ==
LOC: RAD 08:42
PROVIDERS: ATTEND Otolaryngology Otolaryngology/Facial Plastic Surgery
DX: K14.8 Other diseases of tongue (principal); J32.9 Chronic sinusitis, unspecified
CPT/HCPCS: 70491

== ENCOUNTER 2018-10-29 05:41 | Outpatient (CLI) | payer BC ==
[~2018-10-29] VITALS: Ht 170.2 cm; Wt 70.3 kg
[2018-10-29] MEDS ORDERED: ALBU6.7H8 INH (12:38)
[2018-10-29] MEDS ORDERED: BUDE10.2 IH (12:38)
== END 2018-10-29 12:44 ==
LOC: PREOP 05:41
PROVIDERS: ATTEND Otolaryngology Otolaryngology/Facial Plastic Surgery
DX: Z01.818 Encounter for other preprocedural examination (principal)

== ENCOUNTER 2018-10-31 08:15 | Day surgery (SDC) | payer BC ==
[~2018-10-31] VITALS: Ht 170.2 cm; Wt 70.3 kg
[~2018-10-31 08:15] MED LIST changes: +ALBU6.7H8 INH; +BUDE10.2 IH
--- OUTSIDE RECORDS SUMMARY | 2018-10-31 08:20 | XMS REPORT | CCD ---
Author Author Ying Burdick Organization Ying Burdick MD, [facility] Address [address] [place] [address] Phone Care Team Providers Care Nurses Aide Name Role Phone PP Unavailable CCM Unavailable Summary Purpose Interface Exchange Insurance Providers Payer name Policy type / Coverage type Covered constitution party ID Effective Begin Date Effective End Date [facility] [id number] 2017 Unknown Family history Sister Diagnosis Age At Onset Hyperlipidemia Unknown Father Diagnosis Age At Onset Hyperlipidemia Unknown Arthritis Unknown Hypertension Unknown Diabetes Unknown Mother Diagnosis Age At Onset Hyperlipidemia Unknown Hypertension Unknown Asthma Unknown Arthritis Unknown Social History Social History Element Codes Description Effective Dates Marital status Unknown Single 05/05/2016 Number of children Unknown 0 05/05/[address]: 390756830 Never smoker 05/05/[address]: 644270125 Never drinks alcohol 05/05/2016 Allergies, Adverse Reactions, Alerts Substance Reaction Codes Entered Date Inactivated Date Status NEOMYCIN RxNorm: 7299 05/05/2016 No Inactive Date Active Penicillin Unknown 05/05/2016 No Inactive Date Active Past Medical History Illness Codes Condition Status Onset Date Resolved Date Cervicalgia ICD-9: 723.1 ICD-10: M54.2 Active 06/22/2016 Unknown Muscle spasm of back ICD-9: 724.8 ICD-10: M62.830 Active 07/24/2018 Unknown Pain in right shoulder ICD-9: 719.41 ICD-10: M25.511 Active 07/12/2017 Unknown Syncope and collapse ICD-9: 780.2 ICD-10: R55 Active 10/18/2018 Unknown Acute laryngopharyngitis ICD-9: 465.0 ICD-10: J06.0 Active 10/09/2018 Unknown Other allergic rhinitis ICD-9: 477.8 ICD-10: J30.89 Active 10/09/2018 Unknown Pain in left shoulder ICD-9: 719.41 ICD-10: M25.512 Active 06/22/2016 Unknown Elevated blood-pressure reading, without diagnosis of hypertension ICD-9: 796.2 ICD-10: R03.0 Active 05/20/2018 Unknown Strain of other muscles, fascia and tendons at shoulder and upper arm level, left arm, initial encounter ICD-9: 840.8 ICD-10: S46.812A Active 06/22/2016 Unknown Cutaneous abscess of right upper limb ICD-9: 682.3 ICD-10: L02.413 Active 05/04/2016 Unknown Pain in left ankle and joints of left foot ICD-9: 719.47 ICD-10: M25.572 Active 05/04/2016 Unknown Problems Condition Codes Effective Dates Condition Status Cervicalgia ICD-9: 723.1 ICD-10: M54.2 06/22/2016 Active Muscle spasm of back ICD-9: 724.8 ICD-10: M62.830 07/24/2018 Active Pain in right shoulder ICD-9: 719.41 ICD-10: M25.511 07/12/2017 Active Syncope and collapse ICD-9: 780.2 ICD-10: R55 10/18/2018 Active Acute laryngopharyngitis ICD-9: 465.0 ICD-10: J06.0 10/09/2018 Active Other allergic rhinitis ICD-9: 477.8 ICD-10: J30.89 10/09/2018 Active Pain in left shoulder ICD-9: 719.41 ICD-10: M25.512 06/22/2016 Active Elevated blood-pressure reading, without diagnosis of hypertension ICD-9: 796.2 ICD-10: R03.0 05/20/2018 Active Strain of other muscles, fascia and tendons at shoulder and upper arm level, left arm, initial encounter ICD-9: 840.8 ICD-10: S46.812A 06/22/2016 Active Cutaneous abscess of right upper limb ICD-9: 682.3 ICD-10: L02.413 05/04/2016 Active Pain in left ankle and joints of left foot ICD-9: 719.47 ICD-10: M25.572 05/04/2016 Active Medications Medication Codes Instructions Start Date Stop Date Status Fill Instructions baclofen 10 mg tablet RxNorm: 972889 1 Tablet(s) PO TID as needed muscle spasms 10/18/2018 10/22/2018 Inactive ProAir HFA 90 mcg/actuation aerosol inhaler RxNorm: 254413 2 Puff(s) INH QID as needed 2 INH QID 10/15/2018 01/12/2019 Active albuterol sulfate 2.5 mg/3 mL (0.083 %) solution for nebulization RxNorm: 517967 3 Milliliter(s) INH QID as needed 10/15/2018 No Stop Date Active prednisone 20 mg tablet RxNorm: 134892 1 Tablet(s) PO UD 201710/19/2018 Inactive 40,40,20,20,10,10 ofloxacin 0.3 % eye drops RxNorm: 682365 2 Drop(s) ophthalmic (eye) Q2H while awake x 2 days, then Q4H x 5 days 10/14/2018 No Stop Date Active Zithromax Z-Rufus 250 mg tablet RxNorm: 905298 1 Tablet(s) PO UD 10/09/2018 No Stop Date Active Kenalog 40 mg/mL suspension for injection RxNorm: 7950536 Milliliter(s) Inj 10/09/2018 10/09/2018 Inactive prednisone 20 mg tablet RxNorm: 965522 2 Tablet(s) PO daily 10/13/2018 Inactive prednisone 20 mg tablet RxNorm: 112492 2 Tablet(s) PO daily 10/201807/28/2018 Inactive cyclobenzaprine 5 mg tablet RxNorm: 453273 1-2 Tablet(s) PO TID as needed 07/24/2018 07/28/2018 Inactive propranolol 10 mg tablet RxNorm: 892086 1/2 Tablet(s) PO daily as needed performance anxiety events 05/20/201803/2018 Inactive Symbicort 160 mcg-4.5 mcg/actuation HFA aerosol inhaler RxNorm: 1350418 1 INH BID 10/26/2017 01/23/2018 Inactive ProAir HFA 90 mcg/actuation aerosol inhaler RxNorm: 970840 2 INH QID 10/26/2017 01/23/2018 Inactive Symbicort 160 mcg-4.5 mcg/actuation HFA aerosol inhaler RxNorm: 5065653 1 INH BID 10/11/2016 01/08/2017 Inactive ProAir HFA 90 mcg/actuation aerosol inhaler RxNorm: 947847 2 INH QID 10/11/2016 01/08/2017 Inactive Ventolin Refill 90 mcg/actuation aerosol inhaler RxNorm: 659199 2 INH QID 10/11/2016 10/10/2016 Inactive ketorolac 30 mg/mL injection solution RxNorm: 923007 2 Milliliter(s) Inj 06/23/2016 06/23/2016 Inactive cyclobenzaprine 10 mg tablet RxNorm: 070718 1 Tablet(s) PO TID PRN 06/23/2016 07/11/2017 Inactive Bactrim DS 800 mg-160 mg tablet RxNorm: 065168 1 Tablet(s) PO BID 05/05/2016 05/14/2016 Inactive metformin ER 1,000 mg tablet,extended release 24hr RxNorm: 189260 1 Tablet(s) PO BID No Start Date Active Ventolin 90 mcg/actuation aerosol inhaler RxNorm: 921270 INH as needed No Start Date Active Vitamin D3 2,000 unit capsule RxNorm: 092034 1 Capsule(s) PO daily No Start Date Active Claritin 10 mg tablet RxNorm: 639810 1 Tablet(s) PO daily No Start Date Active albuterol sulfate 2.5 mg/3 mL (0.083 %) solution for nebulization RxNorm: 915981 3 Milliliter(s) INH QID as needed No Start Date 10/14/2018 Inactive ofloxacin 0.3 % eye drops RxNorm: 082483 2 Drop(s) ophthalmic (eye) Q2H while awake x 2 days, then Q4H x 5 days No Start Date 10/13/2018 Inactive Symbicort 160 mcg-4.5 mcg/actuation HFA aerosol inhaler RxNorm: 4627866 1 INH BID No Start Date 10/10/2016 Inactive Medication Administered Medication Codes Instructions Start Date Status Kenalog 40 mg/mL suspension for injection RxNorm: 7318401 Milliliter 10/09/2018 No longer Active ketorolac 30 mg/mL injection solution RxNorm: 121680 2Milliliter 06/23/2016 No longer Active Immunizations No Immunization data Assessments Condition Codes Effective Dates Muscle spasm of back ICD-10: M62.830 ICD-9: 724.8 10/18/2018 Pain in right shoulder ICD-10: M25.511 ICD-9: 719.41 10/18/2018 Cervicalgia ICD-10: M54.2 ICD-9: 723.1 10/18/2018 Syncope and collapse ICD-10: R55 ICD-9: 780.2 10/18/2018 Acute laryngopharyngitis ICD-10: J06.0 ICD-9: 465.0 10/09/2018 Other allergic rhinitis ICD-10: J30.89 ICD-9: 477.8 10/09/2018 Pain in left shoulder ICD-10: M25.512 ICD-9: 719.41 07/24/2018 Elevated blood-pressure reading, without diagnosis of hypertension ICD-10: R03.0 ICD-9: 796.2 05/20/2018 Strain of other muscles, fascia and tendons at shoulder and upper arm level, left arm, initial encounter ICD-10: S46.812A ICD-9: 840.8 06/23/2016 Cutaneous abscess of right upper limb ICD-10: L02.413 ICD-9: 682.3 05/05/2016 Pain in left ankle and joints of left foot ICD-10: M25.572 ICD-9: 719.47 05/05/2016 Reason For Visit Reason For Visit Effective Dates Notes shoulder pain 10/18/2018 sore throat 10/09/2018 back pain 07/24/2018 blood pressure followup 05/20/2018 shoulder pain 07/12/2017 neck pain 06/23/2016 lower leg pain 05/05/2016 Results No Results data Review of Systems System Result Effective Dates Constitutional No recent illness 2017 Constitutional No chills 10/18/2018 Constitutional No fever 10/18/2018 Eyes No eye erythema 10/18/2018 Ears/Nose/Throat/Neck No nasal discharge 10/18/2018 Cardiovascular No chest pain/pressure 05/2018 Cardiovascular No dyspnea 10/18/2018 Respiratory No cough 10/18/2018 Respiratory No dyspnea 10/18/2018 Musculoskeletal joint complaint 2017 Neurologic No alteration of consciousness 10/18/2018 Neurologic No mental status change 2017 Constitutional recent illness 10/09/2018 Constitutional chills 10/09/2018 [...] Result Effective Dates Notes Full Exam - Orthopedics Constitutional general appearance Overall: well nourished 10/18/2018 None Full Exam - Orthopedics Constitutional general appearance Overall: well developed 10/18/2018 None Full Exam - Orthopedics Constitutional general appearance Overall: in no acute distress 10/18/2018 None Full Exam - Orthopedics Eyes conjunctiva/ eyelids Overall: conjunctiva clear 10/18/2018 None Full Exam - Orthopedics Eyes conjunctiva/ eyelids Overall: eyelids normal 10/18/2018 None Full Exam - Orthopedics Ears/Nose/Throat lips/teeth/gingiva Overall: benign lips 10/18/2018 None Full Exam - Orthopedics Ears/Nose/Throat oral cavity/pharynx/larynx Overall: oral mucosa clear 10/18/2018 None Full Exam - Orthopedics Respiratory respiratory effort/rhythm Overall: no retractions 10/18/2018 None Full Exam - Orthopedics Respiratory respiratory effort/rhythm Overall: normal rate 10/18/2018 None Full Exam - Orthopedics Psychiatric orientation/consciousness Overall: oriented to person, place and time 10/18/2018 None Full Exam - Orthopedics Psychiatric mood and affect Overall: normal mood and affect 10/18/2018 None Full Exam - Orthopedics Psychiatric appearance Overall: well-groomed, good eye contact 10/18/2018 None Full Exam - Orthopedics MS: head/neck insp & palp - H/N Overall: head atraumatic 10/18/2018 None Full Exam - Orthopedics MS: right upper extremity range of motion - RUE Shoulder: pain with flexion 10/18/2018 None Full Exam - Orthopedics MS: right upper extremity range of motion - RUE Shoulder: pain with extension 10/18/2018 None Full Exam - Orthopedics MS: right upper extremity range of motion - RUE Shoulder: pain with abduction 10/18/2018 None Full Exam - Orthopedics MS: right upper extremity range of motion - RUE Shoulder: pain with adduction 10/18/2018 None Full Exam - Orthopedics MS: head/neck insp & palp - H/N Cervical muscles palpation: tender right paracervical 10/18/2018 None Full Exam - Orthopedics MS: head/neck insp & palp - H/N Cervical muscles palpation: tender right trapezius 10/18/2018 None Full Exam - Orthopedics MS: head/neck insp & palp - H/N Cervical muscles palpation: tender right sternocleidomastoid 10/18/2018 None Full Exam - ENT Constitutional general [...] CPT-4: J1885 06/23/2016 Vital Signs Date Vital 10/18/2018 Blood Pressure 1: 140/68 Code : 8480-6 Heart Rate 1: 91 bpm Height: 5'7" SpO2: 98% Weight: 10/09/2018 Blood Pressure 1: 120/64 Code : 8480-6 BMI: 25.2 Code : 81602-5 Heart Rate 1 : 105 bpm Height: 5'7" SpO2: 98% Weight: 161 lbs 07/24/2018 Blood Pressure 1: 136/82 Code : 8480-6 BMI: 25.4 Code : 56341-7 Heart Rate 1 : 86 bpm Height: 5'7" SpO2: 98% Weight: 162 lbs 05/20/2018 Blood Pressure 1: 150/102 Code: 8480-6 Blood Pressure 2: 146/96 Code: 8480-6 BMI: 25.2 Code: 50694-0 Heart Rate 1: 103 bpm Height: 5'7" SpO2: 98% Weight: 161 lbs 07/12/2017 Blood Pressure 1: 136/78 Code : 8480-6 BMI: 24.6 Code : 29199-5 Heart Rate 1 : 86 bpm Height: 5'7" SpO2: 96% Weight: 157 lbs 06/23/2016 Blood Pressure 1: 132/72 Code : 8480-6 BMI: 24.1 Code : 49093-1 Heart Rate 1 : 94 bpm Height: 5'7" SpO2: 98% Weight: 154 lbs 05/05/2016 Blood Pressure 1: 140/86 Code : 8480-6 BMI: 24.1 Code : 37797-4 Heart Rate 1 : 94 bpm Height: 5'7" SpO2: 98% Weight: 154 lbs Functional Status No Functional Status data History of Present Illness Symptom Name Status Result Effective Date Notes Location deep 2017 None Quality worsening 05/2018 None Onset and Resolution sudden in onset 10/18/2018 None Onset of Symptom 2 days ago 10/18/2018 None Frequency of Episodes constantly 10/18/2018 None Limitation on Activities is incapacitating 10/18/2018 None sore throat Location diffusely 10/09/2018 None sore [...] Codes Date EST. PATIENT, LEVEL III Diagnosis: Cervicalgia[ICD10: M54.2] Diagnosis: Pain in right shoulder[ICD10: M25.511] Diagnosis: Muscle spasm of back[ICD10: M62.830] Diagnosis: Syncope and collapse[ICD10: R55] Saray Burdick MD, [facility] CPT- 4: 96178 10/18/2018 [id number] EST. PATIENT, LEVEL III Diagnosis: Acute laryngopharyngitis[ICD10: J06.0] Diagnosis: Other allergic rhinitis[ICD10: J30.89] [facility] CPT-4: 72922 10/09/2018 [id number] EST. PATIENT, LEVEL III Diagnosis: Cervicalgia[ICD10: M54.2] Diagnosis: Pain in left shoulder[ICD10: M25.512] Diagnosis: Muscle spasm of back[ICD10: M62.830] [facility] CPT-4: 59612 07/24/2018 ([id number]) 55923 EST. PATIENT, LEVEL III Diagnosis: Elevated blood-pressure reading, without diagnosis of hypertension[ ICD10: R03.0] [facility] CPT-4: 12348 05/20/2018 ([id number]) 53461 EST. PATIENT, LEVEL III Diagnosis: Pain in right shoulder[ICD10: M25.511] Princess Burdick MD, [facility] CPT-4: 61666 07/12/2017 ([id number]) 60923 EST. PATIENT, LEVEL III Diagnosis: Pain in left shoulder[ICD10: M25.512] Diagnosis: Strain of other muscles, fascia and tendons at shoulder and upper arm level, left arm, initial encounter[ICD10: S46.812A] Diagnosis: Cervicalgia[ICD10: M54.2] Princess Burdick MD, [facility] CPT-4: 00271 06/23/2016 ([id number]) OFFICE VISIT, NEW - LEVEL 4 Diagnosis: Cutaneous abscess of right upper limb[ICD10: L02.413] Diagnosis: Pain in left ankle and joints of left foot[ICD10: M25.572] Saray Burdick MD, [facility] CPT-4: 35222 05/05/2016 Plan of Care Planned Activity Notes Codes Status Date Visit Plan: Muscle spasms, neck pain, syncope - discussed vagal response - will send for outpatient IV fluids and check labs, will treat as indicated - will send RX The pt is to use prn antiinflammatories to manage acute pain. The patient is to call the office if the pain is worsening or does not improve. 10/18/2018 Appointment: Saray Summers WPtel: [address] [place], [place] [phone] (15 min) Moderate 10/18/2018 Patient Education: Patient Medication Summary Completed 10/18/2018 Patient Education: .Cervicalgia Neck Pain Completed 10/18/2018 Visit Plan: URI - Pt advised to [...] allergy spray. 10/09/2018 Appointment: Saray Summers WPtel: [address] [place], [place] [phone] (15 min) Moderate 10/09/2018 Patient Education: Patient [...] not improve. 07/24/2018 Appointment: Saray Summers WPtel: [facility] [place] (15 min) Moderate 07/24/2018 Patient Education: Patient [...] the diet. 05/20/2018 Appointment: Ying Burdick WPtel: [facility] [place] (15 min) Moderate 05/20/2018 Patient Education: Patient Medication Summary Completed 05/20/2018 Appointment: Princess Lovell WPtel: [phone] [place] (15 min) Moderate 04/19/2018 Referral: Sathish Vega Referral Completed 07/19/2017 Visit Plan: Right shoulder pain-refer to Dr Vega for evaluation 07/12/2017 Appointment: Princess Lovell WPtel: [phone] [place] (30 min) Complex 07/12/2017 Patient Education: Patient Medication Summary Completed 07/12/2017 Care Plan: Referral Order SNOMED-CT : [id number] Pending 07/12/2017 Visit Plan: Neck pain-xray cervical donell-toradol injection today in the office Left shoulder pain-xray clavicle and shoulder Muscle wysbq-lkofbvlju-BH for omdrqwlj-sztw-ikwf Sunday with update 06/23/2016 Appointment: Princess Lovell WPtel: [phone] (15 min) Moderate 06/23/2016 Patient Education: Patient [...] not improve. 05/05/2016 Appointment: Princess Lovell [phone] [phone] New Patient 05/05/2016 Patient Education: Patient Medication [...] Left shoulder pain-xray clavicle and shoulder Muscle vtxyw-nrbqgdkok-MH for vgesezvv-mlyl-mixe Sunday with update . Elevated Blood Pressure [...] pain is worsening or does not improve. . Muscle spasms, neck pain, syncope - discussed vagal response - will send for outpatient IV fluids and check labs, will treat as indicated - will send RX The pt is to use prn antiinflammatories to manage acute pain. The patient is to call the office if the pain is worsening or does not improve.
--- OUTSIDE RECORDS SUMMARY | 2018-10-31 08:20 | XMS REPORT | CCD ---
Author Author Ying Burdick Organization Ying Burdick MD, [facility] Address [address] [place] [address] Phone Care Team Providers Care Invasive Cardiovascular Technologist Name Role Phone PP Unavailable CCM Unavailable Summary Purpose Interface Exchange Insurance Providers Payer name Policy type / Coverage type Covered alliance party ID Effective Begin Date Effective End Date [facility] [id number] 2017 Unknown Family history Sister Diagnosis Age At Onset Hyperlipidemia Unknown Father Diagnosis Age At Onset Hyperlipidemia Unknown Arthritis Unknown Hypertension Unknown Diabetes Unknown Mother Diagnosis Age At Onset Hyperlipidemia Unknown Hypertension Unknown Asthma Unknown Arthritis Unknown Social History Social History Element Codes Description Effective Dates Marital status Unknown Single 05/05/2016 Number of children Unknown 0 05/05/[address]: 221681825 Never smoker 05/05/[address]: 558535839 Never drinks alcohol 05/05/2016 Allergies, Adverse Reactions, [...] Fill Instructions baclofen 10 mg tablet RxNorm: 908924 1 Tablet(s) PO TID as needed muscle spasms 10/18/2018 10/22/2018 Inactive ProAir HFA 90 mcg/actuation aerosol inhaler RxNorm: 399182 2 Puff(s) INH QID as needed 2 INH QID 10/15/2018 01/12/2019 Active albuterol sulfate 2.5 mg/3 mL (0.083 %) solution for nebulization RxNorm: 803939 3 Milliliter(s) INH QID as needed 10/15/2018 No Stop Date Active prednisone 20 mg tablet RxNorm: 379833 1 Tablet(s) PO UD 201710/19/2018 Inactive 40,40,20,20,10,10 ofloxacin 0.3 % eye drops RxNorm: 810075 2 Drop(s) ophthalmic (eye) Q2H while awake x 2 days, then Q4H x 5 days 10/14/2018 No Stop Date Active Zithromax Z-Rufus 250 mg tablet RxNorm: 480403 1 Tablet(s) PO UD 10/09/2018 No Stop Date Active Kenalog 40 mg/mL suspension for injection RxNorm: 7257671 Milliliter(s) Inj 10/09/2018 10/09/2018 Inactive prednisone 20 mg tablet RxNorm: 383042 2 Tablet(s) PO daily 10/13/2018 Inactive prednisone 20 mg tablet RxNorm: 092842 2 Tablet(s) PO daily 10/201807/28/2018 Inactive cyclobenzaprine 5 mg tablet RxNorm: 303357 1-2 Tablet(s) PO TID as needed 07/24/2018 07/28/2018 Inactive propranolol 10 mg tablet RxNorm: 618348 1/2 Tablet(s) PO daily as needed performance anxiety events 05/20/201803/2018 Inactive Symbicort 160 mcg-4.5 mcg/actuation HFA aerosol inhaler RxNorm: 3821316 1 INH BID 10/26/2017 01/23/2018 Inactive ProAir HFA 90 mcg/actuation aerosol inhaler RxNorm: 854404 2 INH QID 10/26/2017 01/23/2018 Inactive Symbicort 160 mcg-4.5 mcg/actuation HFA aerosol inhaler RxNorm: 7292655 1 INH BID 10/11/2016 01/08/2017 Inactive ProAir HFA 90 mcg/actuation aerosol inhaler RxNorm: 889518 2 INH QID 10/11/2016 01/08/2017 Inactive Ventolin Refill 90 mcg/actuation aerosol inhaler RxNorm: 486862 2 INH QID 10/11/2016 10/10/2016 Inactive ketorolac 30 mg/mL injection solution RxNorm: 007626 2 Milliliter(s) Inj 06/23/2016 06/23/2016 Inactive cyclobenzaprine 10 mg tablet RxNorm: 393690 1 Tablet(s) PO TID PRN 06/23/2016 07/11/2017 Inactive Bactrim DS 800 mg-160 mg tablet RxNorm: 598863 1 Tablet(s) PO BID 05/05/2016 05/14/2016 Inactive metformin ER 1,000 mg tablet,extended release 24hr RxNorm: 512976 1 Tablet(s) PO BID No Start Date Active Ventolin 90 mcg/actuation aerosol inhaler RxNorm: 063599 INH as needed No Start Date Active Vitamin D3 2,000 unit capsule RxNorm: 327636 1 Capsule(s) PO daily No Start Date Active Claritin 10 mg tablet RxNorm: 800794 1 Tablet(s) PO daily No Start Date Active albuterol sulfate 2.5 mg/3 mL (0.083 %) solution for nebulization RxNorm: 915285 3 Milliliter(s) INH QID as needed No Start Date 10/14/2018 Inactive ofloxacin 0.3 % eye drops RxNorm: 295137 2 Drop(s) ophthalmic (eye) Q2H while awake x 2 days, then Q4H x 5 days No Start Date 10/13/2018 Inactive Symbicort 160 mcg-4.5 mcg/actuation HFA aerosol inhaler RxNorm: 9253984 1 INH BID No Start Date 10/10/2016 Inactive Medication Administered Medication Codes Instructions Start Date Status Kenalog 40 mg/mL suspension for injection RxNorm: 5248412 Milliliter 10/09/2018 No longer Active ketorolac 30 mg/mL injection solution RxNorm: 553617 2Milliliter 06/23/2016 No longer Active Immunizations No [...] Code : 8480-6 BMI: 25.2 Code : 34938-0 Heart Rate 1 : 105 bpm Height: 5'7" SpO2: 98% Weight: 161 lbs 07/24/2018 Blood Pressure 1: 136/82 Code : 8480-6 BMI: 25.4 Code : 23598-5 Heart Rate 1 : 86 bpm Height: 5'7" SpO2: 98% Weight: 162 lbs 05/20/2018 Blood Pressure 1: 150/102 Code: 8480-6 Blood Pressure 2: 146/96 Code: 8480-6 BMI: 25.2 Code: 33179-8 Heart Rate 1: 103 bpm Height: 5'7" SpO2: 98% Weight: 161 lbs 07/12/2017 Blood Pressure 1: 136/78 Code : 8480-6 BMI: 24.6 Code : 11063-3 Heart Rate 1 : 86 bpm Height: 5'7" SpO2: 96% Weight: 157 lbs 06/23/2016 Blood Pressure 1: 132/72 Code : 8480-6 BMI: 24.1 Code : 06678-0 Heart Rate 1 : 94 bpm Height: 5'7" SpO2: 98% Weight: 154 lbs 05/05/2016 Blood Pressure 1: 140/86 Code : 8480-6 BMI: 24.1 Code : 47054-5 Heart Rate 1 : 94 bpm Height: [...] Syncope and collapse[ICD10: R55] Saray Burdick MD, [facility] CPT- 4: 29170 10/18/2018 [id number] EST. PATIENT, LEVEL III Diagnosis: Acute laryngopharyngitis[ICD10: J06.0] Diagnosis: Other allergic rhinitis[ICD10: J30.89] [facility] CPT-4: 02089 10/09/2018 50193 EST. PATIENT, LEVEL III Diagnosis: Cervicalgia[ICD10: M54.2] Diagnosis: Pain in left shoulder[ICD10: M25.512] Diagnosis: Muscle spasm of back[ICD10: M62.830] [facility] CPT-4: 42263 07/24/2018 ([id number]) 12840 EST. PATIENT, LEVEL III Diagnosis: Elevated blood-pressure reading, without diagnosis of hypertension[ ICD10: R03.0] [facility] CPT-4: 56745 05/20/2018 ([id number]) 19269 EST. PATIENT, LEVEL III Diagnosis: Pain in right shoulder[ICD10: M25.511] Princess Burdick MD, [facility] CPT-4: 98507 07/12/2017 ([id number]) 25956 EST. PATIENT, LEVEL III Diagnosis: Pain in left shoulder[ICD10: M25.512] Diagnosis: Strain of other muscles, fascia and tendons at shoulder and upper arm level, left arm, initial encounter[ICD10: S46.812A] Diagnosis: Cervicalgia[ICD10: M54.2] Princess Burdick MD, [facility] CPT-4: 29383 06/23/2016 ([id number]) OFFICE VISIT, NEW - LEVEL 4 Diagnosis: Cutaneous abscess of right upper limb[ICD10: L02.413] Diagnosis: Pain in left ankle and joints of left foot[ICD10: M25.572] Saray Burdick MD, [facility] CPT-4: 74545 05/05/2016 Plan of Care Planned Activity Notes [...] not improve. 10/18/2018 Appointment: Saray Summers WPtel: [address] [place], [place] [phone] (15 min) Moderate 10/18/2018 Patient Education: Patient [...] allergy spray. 10/09/2018 Appointment: Saray Summers WPtel: [address] [place], [place] [phone] (15 min) Moderate 10/09/2018 Patient Education: Patient [...] not improve. 07/24/2018 Appointment: Saray Summers WPtel: [facility] [place] (15 min) Moderate 07/24/2018 Patient [...] the diet. 05/20/2018 Appointment: Ying Burdick WPtel: [facility] [place] (15 min) Moderate 05/20/2018 Patient Education: Patient Medication Summary Completed 05/20/2018 Appointment: Princess Lovell WPtel: [phone] [place] (15 min) Moderate 04/19/2018 Referral: Sathish Vega Referral Completed 07/19/2017 Visit Plan: Right shoulder pain-refer to Dr Vega for evaluation 07/12/2017 Appointment: Princess oLvell WPtel: [phone] [place] (30 min) Complex 07/12/2017 Patient Education: Patient Medication Summary Completed 07/12/2017 Care Plan: Referral Order SNOMED-CT : [id number] Pending 07/12/2017 Visit Plan: Neck pain-xray cervical donell-toradol injection today in the office Left shoulder pain-xray clavicle and shoulder Muscle kryhl-todgyxjmy-PK for eysxeroy-kdbw-rcac Sunday with update 06/23/2016 Appointment: Princess Lovell WPtel: [phone] (15 min) Moderate 06/23/2016 Patient Education: [...] improve. 05/05/2016 App[facility]ment: Princess [facility] [phone] [phone] New Patient 05/05/2016 Patient Education: Patient Medication [...] Left shoulder pain-xray clavicle and shoulder Muscle zvwlj-ksmxwkiwr-WB for qebkowsc-wcmk-ihvi Sunday with update . Elevated Blood Pressure [...]
--- OUTSIDE RECORDS SUMMARY | 2018-10-31 08:23 | XMS REPORT | Continuity of Care Document ---
Author Author [facility] Organization [facility] Address Unknown Phone Unavailable Allergies Active Description Code Type Severity Reaction Onset Reported/Identified Relationship to Patient Clinical Status Yes neomycin [id number] Drug Allergy Unknown N/A 10/18/2018 Medications There is no data. Problems Date Dx Coded Attending Type Code Diagnosis Diagnosed By 06/07/2015 Ot 719.41 06/07/2015 Ot 724.1 06/07/2015 Ot 786.50 06/07/2015 Ot 959.19 06/07/2015 Ot E000.8 06/07/2015 Ot E849.0 06/07/2015 Ot E928.9 06/07/2015 Ot 724.5 06/07/2015 QIANA ORANTES, NOAH Magaña Ot 959.4 06/07/2015 QIANA ORANTES, NOAH Magaña Ot E000.8 06/07/2015 QIANA ORANTES, NOAH Magaña Ot E849.0 06/07/2015 NOAH KIRAN MD Ot E928.9 06/10/2015 Ot 719.41 06/10/2015 Ot 724.1 06/10/2015 Ot 786.50 06/10/2015 Ot 959.19 06/10/2015 Ot E000.8 06/10/2015 Ot E849.0 06/10/2015 Ot E928.9 06/10/2015 Ot 724.5 06/10/2015 QIANA ORANTES, NOAH Magaña Ot 959.4 06/10/2015 QIANA ORANTES, NOAH Magaña Ot E000.8 06/10/2015 QIANA ORANTES, NOAH Magaña Ot E849.0 06/10/2015 QIANA ORANTES, NOAH Magaña Ot E928.9 06/10/2015 JUSTIN ORANTES, DALTON Magaña Ot 723.0 06/10/2015 DALTON ANDERSON MD Ot 724.2 06/10/2015 DALTON ANDERSON MD Ot 723.0 06/10/2015 DALTON ANDERSON MD Ot 724.2 06/11/2015 DALTON ANDERSON MD Ot 723.0 06/11/2015 JUSTIN ORANTES, DALTON Magaña Ot 724.2 06/23/2015 JUSTIN ORANTES, DALTON Magaña [...] ORANTES, NOAH Magaña Ot E849.0 01/12/2016 QIANA ORATNES, NOAH Magaña Ot E928.9 01/12/2016 JUSTIN ORANTES, DALTON Magaña Ot 241.0 02/02/2016 QIANA ORANTES, NOAH Magaña Ot E07.9 02/15/2016 QIANA ORANTES, NOAH Magaña Ot E07.9 08/01/2016 FELICIA TALAVERAP Ot M25.512 PAIN IN LEFT SHOULDER 08/01/2016 FELICIA TALAVERAP Ot M54.2 CERVICALGIA 10/22/2018 QIANA ORANTES, NOAH Magaña Ot 959.4 HAND INJURY NOS 10/22/2018 QIANA ORANTES, NOAH Magaña Ot E000.8 OTHER EXTERNAL CAUSE STATUS 10/22/2018 QIANA ORANTES, NOAH Magaña Ot E849.0 ACCIDENT IN HOME 10/22/2018 NOAH KIRAN MD Ot E928.9 ACCIDENT NOS 10/22/2018 JUSTIN ORANTES, DALTON Magaña Ot 241.0 NONTOX UNINODULAR GOITER 10/22/2018 NOAH KIRAN MD Ot E04.1 NONTOXIC SINGLE THYROID NODULE 10/22/2018 NOAH KIRAN MD Ot E07.9 DISORDER OF THYROID, UNSPECIFIED 10/22/2018 FELICIA TALAVERA [employer] SUPERVISOR Ot M25.512 PAIN IN LEFT SHOULDER 10/22/2018 FELICIA TALAVERA [employer] SUPERVISOR Ot M54.2 CERVICALGIA 10/23/2018 DEVYN KAUFMAN ADVERTISING SALES MANAGER Ot E86.0 DEHYDRATION 10/23/2018 DEVYN KAUFMAN ADVERTISING SALES MANAGER Ot M54.9 DORSALGIA, UNSPECIFIED 10/23/2018 DEVYN KAUFMAN ADVERTISING SALES MANAGER Ot M62.838 OTHER MUSCLE SPASM 10/23/2018 DEVYN KAUFMAN ADVERTISING SALES MANAGER Ot E86.0 DEHYDRATION 10/23/2018 DEVYN KAUFMAN ADVERTISING SALES MANAGER Ot M54.9 DORSALGIA, UNSPECIFIED 10/23/2018 DEVYN KAUFMAN ADVERTISING SALES MANAGER Ot M62.838 OTHER MUSCLE SPASM 10/25/2018 SHANTAL MARIA MD Ot J32.9 CHRONIC SINUSITIS, UNSPECIFIED 10/25/2018 SHANTAL MARIA MD Ot K14.8 OTHER DISEASES OF TONGUE 10/30/2018 SHANTAL MARIA MD Ot J32.9 CHRONIC SINUSITIS, UNSPECIFIED 10/30/2018 SHANTAL MARIA MD Ot K14.8 OTHER DISEASES OF TONGUE 10/30/2018 SHANTAL MARIA MD Ot Z01.818 ENCOUNTER FOR OTHER PREPROCEDURAL EXAMIN Procedures There is no data. Results Test Result Range Complete blood count (CBC) with automated white blood cell (WBC) differential - 10/18/18 16:20 Blood leukocytes automated count (number/volume) 12.0 10*3/uL 4.3-11.0 Blood erythrocytes automated count (number/volume) 4.48 10*6/uL 4.35-5.85 Venous blood hemoglobin measurement (mass/volume) 13.9 g/dL 11.5-16.0 Blood hematocrit (volume fraction) 42 % 35-52 Automated erythrocyte mean corpuscular volume 94 [foz_us] 80-99 Automated erythrocyte mean corpuscular hemoglobin (mass per erythrocyte) 31 pg 25-34 Automated erythrocyte mean corpuscular hemoglobin concentration measurement ( mass/volume) 33 g/dL 32-36 Automated erythrocyte distribution width ratio 13.4 % 10.0-14.5 Automated blood platelet count (count/volume) 445 10*3/uL 130-400 Automated blood platelet mean volume measurement 8.9 [foz_us] 7.4-10.4 Automated blood neutrophils/100 leukocytes 60 % 42-75 Automated blood lymphocytes/100 leukocytes 33 % 12-44 Blood monocytes/100 leukocytes 6 % 0-12 Automated blood eosinophils/100 leukocytes 1 % 0-10 Automated blood basophils/100 leukocytes 0 % 0-10 Blood neutrophils automated count (number/volume) 7.2 10*3 1.8-7.8 Blood lymphocytes automated count (number/volume) 4.0 10*3 1.0-4.0 Blood monocytes automated count (number/volume) 0.7 10*3 0.0-1.0 Automated eosinophil count 0.1 10*3/uL 0.0-0.3 Automated blood basophil count (count/volume) 0.0 10*3/uL 0.0-0.1 Comprehensive metabolic panel - 10/18/18 16:20 Serum or plasma sodium measurement (moles/volume) 142 mmol/L 135-145 Serum or plasma potassium measurement (moles/volume) 3.8 mmol/L 3.6-5.0 Serum or plasma chloride measurement (moles/volume) 105 mmol/L 98-107 Carbon dioxide 25 mmol/L 21-32 Serum or plasma anion gap determination (moles/volume) 12 mmol/L 5-14 Serum or plasma urea nitrogen measurement (mass/volume) 9 mg/dL 7-18 Serum or plasma creatinine measurement (mass/volume) 0.76 mg/dL 0.60-1.30 Serum or plasma urea nitrogen/creatinine mass ratio 12 NRG Serum or plasma creatinine measurement with calculation of estimated glomerular filtration rate > NRG Serum or plasma glucose measurement (mass/volume) 101 mg/dL 70-105 Serum or plasma calcium measurement (mass/volume) 9.4 mg/dL 8.5-10.1 Serum or plasma total bilirubin measurement (mass/volume) 0.2 mg/dL 0.1-1.0 Serum or plasma alkaline phosphatase measurement (enzymatic activity/volume) 130 U/L 40-136 Serum or plasma aspartate aminotransferase measurement (enzymatic activity/ volume) 20 U/L 5-34 Serum or plasma alanine aminotransferase measurement (enzymatic activity/volume ) 44 U/L 0-55 Serum or plasma protein measurement (mass/volume) 6.6 g/dL 6.4-8.2 Serum or plasma albumin measurement (mass/volume) 3.8 g/dL 3.2-4.5 CALCIUM CORRECTED 9.6 mg/dL 8.5-10.1 Complete urinalysis with reflex to culture - 10/18/18 16:30 Urine color determination YELLOW NRG Urine clarity determination CLEAR NRG Urine pH measurement by test strip 7 5-9 Specific gravity of urine by test strip 1.015 1.016- 1.022 Urine protein assay by test strip, semi-quantitative 2+ NEGATIVE Urine glucose detection by automated test strip NEGATIVE NEGATIVE Erythrocytes detection in urine sediment by light microscopy 1+ NEGATIVE Urine ketones detection by automated test strip NEGATIVE NEGATIVE Urine nitrite detection by test strip NEGATIVE NEGATIVE Urine total bilirubin detection by test strip 1+ NEGATIVE Urine urobilinogen measurement by automated test strip (mass/volume) 1 mg/dL NORMAL Urine leukocyte esterase detection by dipstick 2+ NEGATIVE Automated urine sediment erythrocyte count by microscopy (number/high power field) NONE NRG Automated urine sediment leukocyte count by microscopy (number/high power field ) [HPF] NRG Bacteria detection in urine sediment by light microscopy FEW NRG Squamous epithelial cells detection in urine sediment by light microscopy 10-25 NRG Crystals detection in urine sediment by light microscopy NONE NRG Casts detection in urine sediment by light microscopy NONE NRG Mucus detection in urine sediment by light microscopy LARGE NRG Complete urinalysis with reflex to culture YES NRG Bacterial urine culture - 10/18/18 16:30 Bacterial urine culture [id number] NRG COLONY COUNT >100,000/ML NRG FTX;REPORTABLE RML SENT THIS AMENDED REPORT 10/20 9:05 NRG FREE TEXT ENTRY 2 SEE COMMENTS NRG Encounters ACCT No. Visit Date/Time Discharge Status Pt. Type Provider Facility Loc./Unit Complaint [id number] 10/29/2018 05:41:00 10/29/2018 12:44:00 DIS Outpatient SHANTAL MARIA MD [facility] PREOP RIGHT TONSIL MASS [id number] 10/24/2018 08:42:00 10/24/2018 23:59:59 CLS Outpatient SHANTAL MARIA MD [facility] RAD BASE TONGUE MASS [id number] 10/18/2018 15:58:00 10/18/2018 23:59:59 CLS Outpatient DEVYN KAUFMAN APRN [facility] SDC DEHYDRATION,BACK PAIN , MUSCLE SPASM [id number] 06/23/2016 10:40:00 06/23/2016 23:59:59 CLS Outpatient FELICIA TALAVERA [facility] RAD NECK PAIN,SHOULDER PAIN L [id number] 02/01/2016 10:53:00 02/01/2016 23:59:59 CLS Outpatient NOAH KIRAN MD [facility] CARD RIGHT LOBE LESION [id number] 01/12/2016 13:47:00 01/12/2016 23:59:59 CLS Outpatient NOAH KIRAN MD [facility] RAD ENLARGED THYROID,THYROID CYST [id number] 06/10/2015 07:51:00 06/10/2015 23:59:59 CLS Outpatient DALTON ANDERSON MD [facility] RAD LESION ON THYROID [id number] 06/07/2015 14:46:00 06/07/2015 23:59:59 CLS Outpatient DALTON ANDERSON MD [facility] RAD [id number] 10/15/2013 11:38:00 10/15/2013 23:59:59 CLS Outpatient NOAH KIRAN MD [facility] RAD INJURY TO R HAND [id number] 10/31/2018 08:15:00 ACT Outpatient CANDACE ORANTES, SHANTAL Lewis [facility] SDC RIGHT TONSIL MASS [id number] 08/03/2011 09:43:00 Document Registration [id number] 08/01/2011 10:08:00 Document Registration [id number] 07/27/2010 08:30:00 Document Registration [id number] 08/16/2017 15:27:13 08/16/2017 23:59:59 CLS Outpatient [id number] 06/10/2015 07:53:18 ACT Document Registration
[2018-10-31 08:40] VITALS: BP 134/101
[2018-10-31] MEDS: LACTATED RINGERS 1,000 ML IV PRN ×2 (08:53→10:52)
[2018-10-31] MEDS ORDERED: LIDOCAINE/EPI 1%-1:100,000 (XYLOCAINE) 20ML ONE (09:03)
--- NOTE | 2018-10-31 09:38 | Progress Note-Pre Operative ---
Pre-Operative Progress Note H&P Reviewed The H&P was reviewed, patient examined and no changes noted. Date Seen by Provider: Oct 31, 2018 Time Seen by Provider: : Date H&P Reviewed: Oct 31, 2018 Time H&P Reviewed: :30 Pre-Operative Diagnosis: Right Tonsil Mass, Hoarseness SHANTAL MARIA MD Oct 31, 2018 09:38
[2018-10-31] MEDS ORDERED: fentaNYL INJECTION 100 MCG/2 ML AMP ONE (09:41)
[2018-10-31] MEDS ORDERED: MIDAZOLAM 2 MG/2 ML (VERSED) VIAL ONE (09:41)
[2018-10-31] MEDS ORDERED: NEOSTIGMINE 1 MG/ML 5 ML SYRINGE ONE (10:13)
[2018-10-31] MEDS ORDERED: DEXAMETHASONE 10 MG/ML (DECADRON) 1 ML VIAL ONE (10:13)
[2018-10-31] MEDS ORDERED: LIDOCAINE PF 2% 5 ML (XYLOCAINE) VIAL ONE (10:13)
[2018-10-31] MEDS ORDERED: SEVOFLURANE (ULTANE) 15 ML INHAL SOLN ONE (10:13)
[2018-10-31] MEDS ORDERED: proPOfol 200 MG/20 ML (DIPRIVAN) VIAL IV ONE (10:13)
[2018-10-31] MEDS ORDERED: GLYCOPYRROLATE 0.2 MG/ML (ROBINUL) 2 ML VIAL ONE (10:13)
[2018-10-31] MEDS ORDERED: ROCURONIUM 10 MG/ML 5 ML SYRINGE IV ONE (10:13)
[2018-10-31] MEDS ORDERED: ONDANSETRON 4 MG/2 ML (SDV) Z0FRAN ONE (10:13)
--- NOTE | 2018-10-31 10:22 | Progress Note-Post Operative ---
Post-Operative Progess Note Surgeon (s)/G[employer] Cutter (s) Surgeon SHANTAL MARIA MD [place] n/a Pre-Operative Diagnosis Right Tonsil Mass, Hoarseness Post-Operative Diagnosis same Post-Op Procedure Note Date of Procedure: Oct 31, 2018 Name of Procedure Performed: Excision of Right Tonsil Mass, Diagnostic Direct Laryngoscopy Description & Findings Description and Findings: n/a Anesthesia Type get Estimated Blood Loss minimal Packing none. Specimen(s) collected/removed Right Tonsil Cyst-to pathology-probable retention cyst SHANTAL MARIA MD Oct 31, 2018 10:22
[2018-10-31] MEDS ORDERED: NS IV 1000 ML 1,000 ML IV SCH (10:23)
[2018-10-31] MEDS ORDERED: APAP 325 MG/10.15 ML LIQ (TYLENOL) UDC PO PRN (10:30)
[2018-10-31] MEDS ORDERED: HYDROmorphone 2 MG/ML VIAL (DILAUDID) IV ONE (10:30)
[2018-10-31] MEDS ORDERED: ONDANSETRON 4 MG/2 ML (SDV) Z0FRAN IVP PRN (10:30)
[2018-10-31] MEDS ORDERED: morphine INJ 10 MG/ML 1ML (SYR OR VIAL) IVP ONE (10:30)
[2018-10-31] MEDS ORDERED: HYDROcodone/APAP 7.5MG-325 MG/15 ML (LORTAB) UDC PO PRN (10:30)
[2018-10-31] MEDS ORDERED: LIDOCAINE 2% VISCOUS 15 ML UDC PO SCH (11:00)
[2018-10-31 11:15] VITALS: BP 126/90
[2018-10-31 11:45] VITALS: BP 112/80
[2018-10-31] MEDS ORDERED: VISCOUS XYLOCAINE TOP (11:50)
[2018-10-31] MEDS ORDERED: AZIT200S47 PO (11:50)
[2018-10-31] MEDS ORDERED: HYDR15SO8 PO (11:50)
[2018-10-31 12:15] VITALS: BP 120/81
--- NOTE | 2018-10-31 14:58 | Anesthesia-General Post-Op ---
General Patient Condition Mental Status/LOC: Same as Preop Cardiovascular: Satisfactory Nausea/Vomiting: Absent Respiratory: Satisfactory Pain: Controlled Complications: Absent Post Op Complications Complications None Follow Up Care/Instructions Patient Instructions None needed. Anesthesia/Patient Condition Patient Condition Patient is doing well, no complaints, stable vital signs, no apparent adverse anesthesia problems. No complications reported per nursing. D/C home per [facility] Criteria: Yes EVER [place]O CRNA Oct 31, 2018 14:58
== END 2018-10-31 12:25 | disposition home or self-care (01) ==
LOC: SDC 08:15
PROVIDERS: ATTEND Otolaryngology Otolaryngology/Facial Plastic Surgery
DX: J35.3 Hypertrophy of tonsils with hypertrophy of adenoids (principal); J35.8 Other chronic diseases of tonsils and adenoids; R49.0 Dysphonia; E88.81 Metabolic syndrome and other insulin resistance; J30.2 Other seasonal allergic rhinitis; F41.9 Anxiety disorder, unspecified; Z79.899 Other long term (current) drug therapy
CPT/HCPCS: 84703; 87081; 88305

== ENCOUNTER → 2018-12-03 | Outpatient (CLI) | payer BC ==
[~2018-12-03] MED LIST changes: +AZIT200S47 PO; +HYDR15SO8 PO; +VISCOUS XYLOCAINE TOP
[2018-12-03 09:58] LABS: BASOPHILS % (AUTO) 1 % (0-10); EOSINOPHILS % (AUTO) 1 % (0-10); HEMATOCRIT 42 % (35-52); HEMOGLOBIN 14.2 G/DL (11.5-16.0); LYMPHOCYTES # (AUTO) 2.6 X 10^3 (1.0-4.0); LYMPHOCYTES % (AUTO) 39 % (12-44); MEAN CORPUSCULAR HEMOGLOBIN 31 PG (25-34); MEAN CORPUSCULAR HGB CONC 34 G/DL (32-36); MEAN CORPUSCULAR VOLUME 93 FL (80-99); MONOCYTES # (AUTO) 0.4 X 10^3 (0.0-1.0); MONOCYTES % (AUTO) 6 % (0-12); NEUTROPHILS # (AUTO) 3.5 X 10^3 (1.8-7.8); NEUTROPHILS % (AUTO) 53 % (42-75); PLATELET COUNT 325 10^3/uL (130-400); RED BLOOD COUNT 4.55 10^6/uL (4.35-5.85); RED CELL DISTRIBUTION WIDTH 13.6 % (10.0-14.5); WHITE BLOOD COUNT 6.5 10^3/uL (4.3-11.0)
--- NOTE | 2018-12-03 13:24 | Diagnostic Imaging Report ---
PATIENT HISTORY: ASTHMA, SEASONAL ALLERGY. TECHNIQUE: Two views of the chest. COMPARISON: 08/01/2011. FINDINGS: The lung volumes are normal. No focal consolidation is seen. No large pleural effusion or pneumothorax is seen. The cardiomediastinal silhouette is normal in size and contour. No acute osseous abnormality is seen. IMPRESSION: No acute pulmonary abnormality seen. Dictated by: Dictated on workstation # [id number]
[2018-12-04 05:43] LABS: ALTERNARIA MOLD RAST <0.35 kU/L (<0.35); RAGWEED RAST 7.42 kU/L (0.00-0.34)
== END ==
LOC: RAD 09:42
PROVIDERS: ATTEND Nurse Practitioner Family
DX: J45.909 Unspecified asthma, uncomplicated (principal)
CPT/HCPCS: 36415; 71046; 85025; 86003

== ENCOUNTER → 2019-01-01 | Outpatient (CLI) | payer BC ==
[~2019-01-01] MED LIST changes: +RT-ALBUTEROL SULF 2.5 MG/3 ML PRE-MIX VIAL INH ONE
== END ==
LOC: RT 11:36
PROVIDERS: ATTEND Nurse Practitioner Family
DX: J45.909 Unspecified asthma, uncomplicated (principal)
CPT/HCPCS: 94060; 94726; 94729

== ENCOUNTER 2021-03-07 16:41 | Day surgery (SDC) | payer BC ==
[~2021-03-07] VITALS: Ht 170.2 cm; Wt 170.2 kg
[2021-03-07] VITALS (10 sets, daily range): BP systolic 125–137; BP diastolic 78–86
[~2021-03-07 16:41] MED LIST changes: -ACHD5005 PO; -DOCU-143 PO; -HOLD METFORMIN - RECEIVED CONTRAST 20 ML VIAL IV SCH; -IOHEXOL 350 MG/ML 100 ML (OMNIPAQUE 350) VIAL IV ONE; -NS 100 ML (IVPB) BAG IV ONE
[2021-03-07] MEDS ORDERED: LIDOCAINE/EPI 1%-1:100,000 (XYLOCAINE) 20ML ONE (16:51)
[2021-03-07] MEDS ORDERED: proPOfol 200 MG/20 ML (DIPRIVAN) VIAL IV ONE (16:55)
[2021-03-07] MEDS ORDERED: ONDANSETRON 4 MG/2 ML (SDV) Z0FRAN ONE ×2 (16:55→16:57)
[2021-03-07] MEDS ORDERED: SEVOFLURANE (ULTANE) 15 ML INHAL SOLN ONE ×3 (16:55→17:55)
[2021-03-07] MEDS ORDERED: fentaNYL INJ 100 MCG/2 ML AMP ONE (16:56)
[2021-03-07] MEDS ORDERED: HYDROmorphone 2 MG/ML VIAL (DILAUDID) ONE (16:56)
[2021-03-07] MEDS ORDERED: morphine INJ 10 MG/ML 1ML (SYR OR VIAL) ONE (16:57)
[2021-03-07] MEDS ORDERED: MIDAZOLAM 2 MG/2 ML (VERSED) VIAL ONE (17:00)
--- NOTE | 2021-03-07 17:33 | History & Physical-Surgical ---
History of Present Illness History of Present Illness Reason for visit/HPI Right lower quadrant abdominal pain. Patient is a 40-year-old female who presented to her primary care physician with right lower quadrant abdominal pain for approximately 24 hours. Patient states the pain is moderate to severe in the right lower quadrant. No radiation of pain. Patient felt this was probably appendicitis when it began. She has had limited intake. She is unable to move because this makes the pain worse. Holding still makes it better. Patient had a CT scan today which was consistent with acute appendicitis. She was notified of these findings and instructed to keep n.p.o. and go to the hospital. Patient thought she might of had a fever slightly. She denies any fever at this time. She denies any nausea vomiting fever sweats chills shortness of breath or chest pain. Date of Admission Mar 07, 2021 at 16:41 Date Seen by a Provider: Mar 07, 2021 Time Seen by a Provider: 17:20 I consulted on this patient on 03/07/21 17:28 Attending Physician Antwan Calderon DO Admitting Physician Ying Burdick MD Consult Allergies and Home Medications Allergies Coded Allergies: Penicillins (Verified Allergy, Severe, HIVES/TINGUE SWELLING, 10/29/18) levofloxacin (Verified Allergy, Mild, RASH, 10/29/18) neomycin (Verified Allergy, Mild, RASH, 10/29/18) Home Medications Albuterol Sulfate 6.7 Gm Hfa.aer.ad, 6.7 GM INH PRN, (Reported) Azithromycin 200 Mg/5 Ml Susp.recon, 1 TSP PO DAILY Prescribed by: CORINA TAMAYO on 10/31/18 1150 Budesonide/Formoterol Fumarate 10.2 Gm Hfa.aer.ad, 2 PUFF IH BID, (Reported) Hydrocodone/Acetaminophen 15 Ml Solution, 0.5 TSP PO Q4H 8 OZ BOTTLE Prescribed by: CORINA TAMAYO on 10/31/18 1150 Loratadine 10 Mg Capsule, 10 MG PO DAILY, (Reported) [Viscous Xylocaine] , 1 TSP TOP Q3HR PRN for PAIN-MILD 1 TEASPOON EVERY 2-3 HOURS NEEDED FOR PAIN Prescribed by: CORINA ATMAYO on 10/31/18 1150 Patient Home Medication List Home Medication List Reviewed: Yes Past Jimbrio-Dladeg-Ykxfzz Hx Patient Social History Smoking Status: Never a Smoker Recent Hopitalizations: No Alcohol Use?: No Have you traveled recently?: No Immunizations Up To Date Date of Influenza Vaccine: Aug 07, 2020 Seasonal Allergies Seasonal Allergies: Yes Surgeries History of Surgeries: Yes (Cyst of neck, right shoulder, foot surgery) Surgeries: Orthopedic Respiratory History of Respiratory Disorde: No Cardiovascular History of Cardiac Disorders: No Neurological History of Neurological Disord: No Reproductive System : No Hx Reproductive Disorders: No Sexually Transmitted Disease: No HIV/AIDS: No Genitourinary History of Genitourinary Disor: No Gastrointestinal History of Gastrointestinal Di: No Musculoskeletal History of Musculoskeletal Dis: No Musculoskeletal Disorders: Arthritis Endocrine History of Endocrine Disorders: No HEENT History of HEENT Disorders: No Cancer History of Cancer: No Psychosocial History of Psychiatric Problem: No Integumentary History of Skin or Integumenta: No Blood Transfusions Adverse Reaction to a Blood Tr: No Reviewed Nursing Assessment Reviewed/Agree w Nursing PMH: Yes Family Medical History Significant Family History: No Pertinent Family Hx Review of Systems Constitutional: No chills, No diaphoresis; fever (?) Respiratory: No cough, No dyspnea on exertion Cardiovascular: No chest pain Gastrointestinal: RLQ; No nausea, No vomiting Genitourinary: No decreased output, No discharge Musculoskeletal: No back pain, No joint pain Skin: No change in color, No change in hair/nails Psychiatric/Neurological: Denies Anxiety, Denies Depressed, Denies Emotional Problems All Other Systems Reviewed Negative Unless Noted: Yes (Negative excepted noted.) Physical Exam Vital Signs Vital Signs - First Documented 03/07/21 17:11 O2 Delivery Room Air Capillary Refill : Height, Weight, BMI Height: 5'7.00" Weight: 155lbs. 0.0oz. [id number]; 25.95 BMI Method: General Appearance: No Apparent Distress, WD/WN HEENT: PERRL/EOMI, Normal ENT Inspection Neck: Normal Inspection, Non Tender, Supple Respiratory: Chest Non Tender, No Accessory Muscle Use, No Respiratory Distress Cardiovascular: Regular Rate, Rhythm, No JVD Gastrointestinal: Soft; No Distended; Tenderness (Right lower quadrant) Rectal: Deferred Back: Normal Inspection, No CVA Tenderness Extremity: Normal Inspection, Non Tender, No Calf Tenderness Neurologic/Psychiatric: Alert, Oriented x3, Normal Mood/Affect, network engineer administrator II-XII Norm as Tested Skin: Normal Color, Warm/Dry Lymphatic: No Adenopathy Data Review Labs Laboratory Tests 03/07/21 17:10: Urine Test NEGATIVE Assessment/Plan Assessment/Plan Admission Diagonsis Right lower quadrant abdominal pain, acute appendicitis Admission Status: Observation Assessment/Plan Right lower quadrant abdominal pain acute appendicitis Patient explained risks and benefits of laparoscopic appendectomy all other indicated procedures. Patient CT scan and exam consistent with acute appendicitis. Patient understands risk and benefits and wishes to proceed. Patient's n.p.o., 2 OR for surgical intervention. ANTWAN CALDERON DO Mar 07, 2021 17:33
[2021-03-07] MEDS ORDERED: metroNIDAZOLE 500MG/100ML IVPB 100 ML ONE (17:35)
[2021-03-07] MEDS ORDERED: CLINDAMYCIN 600 MG/4ML (CLEOCIN) VIAL ONE (17:35)
[2021-03-07] MEDS: LACTATED RINGERS 1,000 ML IV PRN ×2 (17:40→18:08)
[2021-03-07] MEDS ORDERED: GLYCOPYRROLATE 0.2 MG/ML (ROBINUL) 2 ML VIAL ONE (17:55)
[2021-03-07] MEDS ORDERED: ROCURONIUM 10 MG/ML 5 ML SYRINGE IV ONE (17:55)
[2021-03-07] MEDS ORDERED: SUCCINYLCHOLINE INJ 100 MG/5 ML SYR/VIAL ONE (17:55)
[2021-03-07] MEDS ORDERED: NEOSTIGMINE 3 MG/3 ML VIAL ONE (17:55)
[2021-03-07] MEDS ORDERED: ACHD5005 PO (18:33)
[2021-03-07] MEDS ORDERED: DOCU-143 PO (18:33)
--- NOTE | 2021-03-07 18:34 | Discharge Inst-Simple/Standard ---
Discharge Inst-Standard Discharge Medications New, Converted or Re-Newed RX: RX on Chart Patient Instructions/Follow Up Plan of Care/Instructions/FU: 2 weeks Kvng Activity as Tolerated: No Discharge Diet: Regular Diet Other Inst to Patient Follow up Appt: Make appointment for 2 week. Instructions: No lifting greater than 10 pounds. No strenuous activity. May shower in 24 hours, no tub bath or soaking. Use incentive spirometer at home as directed. No Smoking Skin/Wound Care: You have special glue over your incision that will fall off on it's own. Symptoms to Report: Appetite Changes, Extremity Discoloration, Numbness/Tingling, Swelling Increased, Bleeding Excessive, Eyesight Changes, Pain Increased, Urine Color Change, Constipation(Persistent), Fever over 101 degree F, Pain/Pressure in chest, Urinating Difficulty, Cough Up/Vomit Blood, Heart Beat Irreg/Pounding, Pain/Pressure in jaw, Vaginal Bleeding Increase, Cramps in feet or legs, Lightheadedness, Pain/Pressure in shoulder, Diarrhea(Persistent), Memory Changes Suddenly, Questions/Concerns, Weight gain consecutive days, Dizziness/Fainting, Nausea/Vomiting, Shortness of Breath, Weight gain over 2 pounds If questions or concerns contact your physician Or seek help at emergency department. ANTWAN GRANDE DO Mar 07, 2021 18:34
--- NOTE | 2021-03-07 18:35 | Progress Note-Post Operative ---
Post-Operative Progess Note Surgeon (s)/Cap Lining Machine Operator (s) Surgeon ANTWAN GRANDE DO Cap Lining Machine Operator: na Pre-Operative Diagnosis acute appendicitis Post-Operative Diagnosis same Procedure & Operative Findings Date of Procedure 03/07/21 Procedure Performed/Findings PROCEDURE: Laparoscopic appendectomy. COMPLICATIONS: None. INDICATIONS: The patient is a 40 year old female who has been having right lower quadrant abdominal pain. Patient's exam consistent with appendicitis. I discussed risk and benefits of laparoscopic appendectomy and all indicated procedures with the possibility being a normal appendix. The patient understands the risks and benefits and wishes to proceed. Consent was signed on the chart. DESCRIPTION OF PROCEDURE: The patient was taken to the operating suite, prepped and draped in a sterile fashion. Timeout was performed. Local anesthetic was infiltrated just above the umbilicus and 11-blade scalpel was used to make a skin incision. Cautery was used to dissect down to the fascia and scored. Kochers were used to grasp and elevate it and the abdomen was then entered. A 0 Vicryl was placed in a [id number] fashion for closure at the end of the case. The balloon trocar was inserted into the abdomen and pneumoperitoneum was achieved. Under direct visualization of the laparoscope, a 5 mm trocar was placed in the suprapubic region and a 5 mm trocar was placed in the left lower quadrant. Appendix was located, Inflamed appendix. The base of the appendix was dissected around. Once at the base an Endo-VENESSA 2.5 stapler was then fired across the base of the appendix. The mesoappendix was then divided. It was then placed in an Endobag and removed through the 12 mm trocar site. The abdomen was then irrigated and suctioned. No other pathology noted. The abdomen was then desufflated and the trocars were removed. The 0 Vicryl placed at the beginning of the case was then tied closing the 12 mm fascial defect. The skin was then closed using 4-0 Monocryl in a subcuticular fashion. The abdomen was then washed and dried and Skin Affix was placed over the incisions. The patient tolerated the procedure well without any complications and was taken to the recovery room in stable condition. Anesthesia Type general Estimated Blood Loss Estimated blood loss (mL): minimal Specimens/Packing Specimens Removed appendix ANTWAN GRANDE DO Mar 07, 2021 18:35
--- NOTE | 2021-03-07 18:52 | Anesthesia-General Post-Op ---
General Patient Condition Mental Status/LOC: Same as Preop Cardiovascular: Satisfactory Nausea/Vomiting: Absent Respiratory: Satisfactory Pain: Controlled Complications: Absent Post Op Complications Complications None Follow Up Care/Instructions Patient Instructions None needed. Anesthesia/Patient Condition Patient Condition Patient is doing well, no complaints, stable vital signs, no apparent adverse anesthesia problems. No complications reported per nursing. WALKER OLMSTEAD CRNA Mar 07, 2021 18:51
[2021-03-07] MEDS ORDERED: fentaNYL INJ 100 MCG/2 ML AMP IVP ONE (19:00)
[2021-03-07] MEDS ORDERED: RT-ALBUTEROL SULF 2.5 MG/3 ML PRE-MIX VIAL INH ONE (19:00)
[2021-03-07] MEDS ORDERED: morphine INJ 10 MG/ML 1ML (SYR OR VIAL) IVP ONE (19:00)
[2021-03-07] MEDS ORDERED: ONDANSETRON 4 MG/2 ML (SDV) Z0FRAN IVP PRN (19:00)
[2021-03-07] MEDS ORDERED: MEPERIDINE (DEMEROL) INJ 50 MG/ML IVP ONE (19:00)
[2021-03-07] MEDS ORDERED: HYDROmorphone 2 MG/ML VIAL (DILAUDID) IV ONE (19:00)
== END 2021-03-07 21:35 | disposition home or self-care (01) ==
LOC: UNDOADMIN 16:41 → 4TH 16:41 → SDC 16:41 → 4TH 16:41 → UNDODISIN 21:35 → SDC 21:35
PROVIDERS: ATTEND Surgery
DX: K35.80 Unspecified acute appendicitis (principal); J45.909 Unspecified asthma, uncomplicated; Z79.51 Long term (current) use of inhaled steroids
CPT/HCPCS: 84703; 88304

== ENCOUNTER → 2021-03-07 | Outpatient (CLI) | payer BC ==
[~2021-03-07] MED LIST changes: +ACHD5005 PO; +DOCU-143 PO; +HOLD METFORMIN - RECEIVED CONTRAST 20 ML VIAL IV SCH; +IOHEXOL 350 MG/ML 100 ML (OMNIPAQUE 350) VIAL IV ONE; +NS 100 ML (IVPB) BAG IV ONE; -OXYM30SP NS; +OXYM30SP25 NS; -RT-ALBUTEROL SULF 2.5 MG/3 ML PRE-MIX VIAL INH ONE
[2021-03-07 15:37] LABS: HEMOGLOBIN 14.6 g/dL (11.5-16.0); MEAN PLATELET VOLUME 8.8 fL (9.0-12.2); WHITE BLOOD COUNT 13.5 10^3/uL (4.3-11.0)
[2021-03-07 15:50] LABS: ALANINE AMINOTRANSFERASE 19 U/L (0-55); ALBUMIN 4.3 GM/DL (3.2-4.5); ALKALINE PHOSPHATASE 119 U/L (40-136); BILIRUBIN,TOTAL 0.4 MG/DL (0.1-1.0); BUN/CREATININE RATIO 10; CALCIUM 9.8 MG/DL (8.5-10.1); CARBON DIOXIDE 23 MMOL/L (21-32); CHLORIDE 105 MMOL/L (98-107); CREATININE SERUM 0.73 MG/DL (0.60-1.30); GFR ESTIMATED > 60; GLUCOSE 97 MG/DL (70-105); POTASSIUM 3.7 MMOL/L (3.6-5.0); SODIUM 139 MMOL/L (135-145); TOTAL PROTEIN 7.5 GM/DL (6.4-8.2)
--- NOTE | 2021-03-07 16:13 | Diagnostic Imaging Report ---
PROCEDURE: CT abdomen and pelvis with contrast, rule out appendicitis. TECHNIQUE: Multiple contiguous axial images were obtained through the abdomen and pelvis after the administration of intravenous contrast. All CT scans use one or more of the following dose optimizing techniques: automated exposure control, MA and/or KvP adjustment based on patient size and exam type or iterative reconstruction. INDICATION: Abdominal pain. COMPARISON: There is no previous study available at this time for comparison. FINDINGS: No focal hepatic, gallbladder, pancreatic, adrenal gland, or splenic abnormalities identified. Kidneys reveal no hydronephrosis. Punctate densities in the calyces of both kidneys may represent early concentrated contrast as opposed to stones. There is enlargement and mural thickening at the level of the appendix without evidence of associated abscess. Small amount of pelvic free fluid is noted. IMPRESSION: Findings are compatible with acute appendicitis without definite sign of perforation or other acute abnormality. Dictated by: Dictated on workstation # [id number]
== END ==
LOC: RAD 15:14
PROVIDERS: ATTEND Nurse Practitioner Family
DX: R10.31 Right lower quadrant pain (principal)
CPT/HCPCS: 36415; 74177; 80053; 85027

== ENCOUNTER → 2021-06-08 | Outpatient (CLI) | payer BC ==
[~2021-06-08] MED LIST changes: +ACHD5005 PO; +DOCU-143 PO
== END ==
LOC: RT 14:30
PROVIDERS: ATTEND Nurse Practitioner Family
DX: J45.909 Unspecified asthma, uncomplicated (principal)
CPT/HCPCS: 94010; 94726; 94729